=== PATIENT | female | born 1950 | race Two or more races ===

== ENCOUNTER 2019-06-17 14:13 | Emergency (ER) | payer MEDICAID ==
[~2019-06-17] VITALS: Ht 154.9 cm; Wt 86.2 kg
[~2019-06-17 14:13] MED LIST: ACET500T48 PO; ALBUAER3 IN; DOCU100C8 PO; DOXY-286 PO; FLUT110A INH; RANI75TA65 PO
[2019-06-17 14:49] LABS: Urine Bacteria FEW /hpf (None Seen); Urine Blood Negative /uL (Negative); Urine Specific Gravity 1.002 (1.001-1.035); Urine WBC 9 /hpf (0 - 5)
[2019-06-17 15:41] LABS: Basophils # (auto) 0.1 uL; Basophils % (auto) 1.2 % (0.0-2.0); Eosinophils # (auto) 0.4 uL; Eosinophils % (auto) 4.3 % (0.0-7.0); Hematocrit 46.6 % (36.0-46.0); Hemoglobin 15.8 g/dL (12.2-16.2); Lymphocytes # (auto) 4.4 uL; Lymphocytes % (auto) 48.6 % (10.0-50.0); Mean Corpuscular Hemoglobin 31.8 pg (28.0-32.0); Mean Corpuscular Hgb Conc. 33.9 g/dL (32.0-36.0); Mean Corpuscular Volume 93.6 fL (80.0-100.0); Monocytes # (auto) 0.8 uL; Monocytes % (auto) 9.4 % (0.0-12.0); Neutrophils # (auto) 3.3 uL; Neutrophils % (auto) 36.5 % (37.0-80.0); Nucleated Red Blood Cells % 0.1 %; Platelet Count (auto) 223 10^3/uL (140-450); Red Blood Cells 4.98 10^6/uL (4.0-5.20); Red Cell Distribution Width 13.6 % (11.8-14.3)
[2019-06-17 15:55] LABS: Albumin 3.7 g/dL (3.4-5.0); Anion Gap 6 (5-15); Blood Urea Nitrogen 11 mg/dL (7-18); Calcium 9.3 mg/dL (8.5-10.1); Carbon Dioxide 27 mmol/L (21-32); Chloride 108 mmol/L (98-107); Glucose 112 mg/dL (74-106); Potassium 4.3 mmol/L (3.5-5.1); Sodium 141 mmol/L (136-145)
[2019-06-17 16:00] LABS: Alanine Aminotransferase 65 U/L (13-56); Alkaline Phosphatase 103 U/L (45-117); Aspartate Aminotransferase 69 U/L (15-37); BUN/Creatinine Ratio 12.8; Bilirubin, Total 0.3 mg/dL (0.2-1.0); GFR African American 84 mL/min; GFR Non-African American 70 mL/min; Total Protein 7.7 g/dL (6.4-8.2)
[2019-06-17] MEDS ORDERED: SODIUM CHLORIDE 0.9% 1,000 ML IV ONE (16:14)
[2019-06-17] MEDS ORDERED: cefTRIAXone 1GM/50ML D5W 50 ML IV ONE (16:15)
[2019-06-17 16:39] VITALS: BP 125/58
[2019-06-17] MEDS ORDERED: DOCUSATE SOD 100 MG CAP PO ONE (17:00)
== END 2019-06-17 17:11 | disposition home or self-care (01) ==
LOC: ER 14:13
DX: N39.0 Urinary tract infection, site not specified (principal); K59.00 Constipation, unspecified; E86.0 Dehydration; J45.909 Unspecified asthma, uncomplicated; E78.5 Hyperlipidemia, unspecified; I10 Essential (primary) hypertension; Z90.710 Acquired absence of both cervix and uterus; Z88.0 Allergy status to penicillin; Z88.8 Allergy status to other drugs, medicaments and biological substances; Z79.899 Other long term (current) drug therapy
CPT/HCPCS: 36415; 74176; 80053; 81001; 84484; 85025; 96365; 99284; J0696; J7030

== ENCOUNTER 2020-11-14 13:31 | Emergency (ER) | payer OTHER, MEDICAID ==
[~2020-11-14] VITALS: Ht 152.4 cm; Wt 81.6 kg
[~2020-11-14 13:31] MED LIST changes: +DOCU100C10 PO; -DOCU100C8 PO
[2020-11-14 14:07] VITALS: BP 139/59
[2020-11-14] MEDS ORDERED: cefTRIAXone SOD 1,000 MG VL IM ONE (14:15)
[2020-11-14] MEDS ORDERED: ACETAMINOPHEN 325 MG TAB PO ONE (14:15)
== END 2020-11-14 15:06 | disposition home or self-care (01) ==
LOC: ER 13:31
DX: H65.192 Other acute nonsuppurative otitis media, left ear (principal); J03.90 Acute tonsillitis, unspecified; I10 Essential (primary) hypertension; E78.5 Hyperlipidemia, unspecified; J45.909 Unspecified asthma, uncomplicated; Z90.710 Acquired absence of both cervix and uterus; Z79.2 Long term (current) use of antibiotics; Z79.899 Other long term (current) drug therapy; Z88.0 Allergy status to penicillin; Z88.8 Allergy status to other drugs, medicaments and biological substances
CPT/HCPCS: 96372; 99283; J0696

== ENCOUNTER 2022-01-18 18:30 | Emergency (ER) | payer OTHER, MEDICAID ==
[~2022-01-18] VITALS: Ht 152.4 cm; Wt 80.3 kg
[2022-01-18 18:56] LABS: Basophils # (auto) 0.1 10 ^3/uL (0-0.2); Basophils % (auto) 0.9 % (0.0-2.0); Eosinophils # (auto) 0.3 10 ^3/uL (0-0.8); Eosinophils % (auto) 3.2 % (0.0-7.0); Hematocrit 44.5 % (36.0-46.0); Hemoglobin 14.4 g/dL (12.2-16.2); Lymphocytes # (auto) 3.3 10 ^3/uL (0.4-5.4); Lymphocytes % (auto) 39.2 % (10.0-50.0); Mean Corpuscular Hemoglobin 30.2 pg (28.0-32.0); Mean Corpuscular Hgb Conc. 32.4 g/dL (32.0-36.0); Mean Corpuscular Volume 93.2 fL (80.0-100.0); Monocytes # (auto) 0.5 10 ^3/uL (0-1.3); Neutrophils # (auto) 4.2 10 ^3/uL (1.6-8.6); Neutrophils % (auto) 50.7 % (37.0-80.0); Nucleated Red Blood Cells % 0.1 %; Red Blood Cells 4.78 10^6/uL (4.0-5.20); White Blood Cell 8.3 10^3/uL (4.4-10.8)
[2022-01-18] MEDS ORDERED: ASPirin 81 mg TAB PO ONE (19:00)
[2022-01-18 19:14] LABS: Albumin 3.4 g/dL (3.4-5.0); Calcium 8.6 mg/dL (8.5-10.1); Potassium 3.9 mmol/L (3.5-5.1)
[2022-01-18 19:17] LABS: BUN/Creatinine Ratio 9.4; Bilirubin, Total 0.2 mg/dL (0.2-1.0); Total Protein 7.2 g/dL (6.4-8.2)
[2022-01-18 21:10] VITALS: BP 120/59
== END 2022-01-18 21:13 | disposition home or self-care (01) ==
LOC: ER 18:31
DX: R07.89 Other chest pain (principal); G44.209 Tension-type headache, unspecified, not intractable; I10 Essential (primary) hypertension; E78.5 Hyperlipidemia, unspecified; J45.909 Unspecified asthma, uncomplicated; Z90.710 Acquired absence of both cervix and uterus; Z79.2 Long term (current) use of antibiotics; Z79.899 Other long term (current) drug therapy; Z88.0 Allergy status to penicillin; Z88.8 Allergy status to other drugs, medicaments and biological substances
CPT/HCPCS: 36415; 70450; 71045; 76705; 80053; 83735; 84484; 85025; 93005

== ENCOUNTER 2022-03-12 17:34 | Inpatient (IN) | payer OTHER, MEDICAID ==
[~2022-03-12] VITALS: Ht 162.6 cm; Wt 74.4 kg
[2022-03-12] MEDS ORDERED: SODIUM CHLORIDE 0.9% 1,000 ML IV ONE ×2 (18:30→23:45)
[2022-03-12] MEDS ORDERED: ONDANSETRON HCL 4 MG/2 ML VIAL IV ONE (19:00)
[2022-03-12 19:15] LABS: Basophils # (auto) 0 10 ^3/uL (0-0.2); Basophils % (auto) 0.5 % (0.0-2.0); Eosinophils # (auto) 0 10 ^3/uL (0-0.8); Eosinophils % (auto) 0.4 % (0.0-7.0); Hematocrit 48.1 % (36.0-46.0); Hemoglobin 16.3 g/dL (12.2-16.2); Lymphocytes # (auto) 1.2 10 ^3/uL (0.4-5.4); Lymphocytes % (auto) 17.8 % (10.0-50.0); Mean Corpuscular Hemoglobin 31.8 pg (28.0-32.0); Mean Corpuscular Hgb Conc. 33.9 g/dL (32.0-36.0); Monocytes # (auto) 0.8 10 ^3/uL (0-1.3); Monocytes % (auto) 12.1 % (0.0-12.0); Neutrophils # (auto) 4.7 10 ^3/uL (1.6-8.6); Neutrophils % (auto) 69.2 % (37.0-80.0); Red Blood Cells 5.12 10^6/uL (4.0-5.20); Red Cell Distribution Width 14.1 % (11.8-14.3); White Blood Cell 6.8 10^3/uL (4.4-10.8)
[2022-03-12 19:31] LABS: INR 1.03 (0.9-1.15); Partial Thromboplastin Time 30.8 sec (24.6-33.4)
[2022-03-12 19:32] LABS: Alanine Aminotransferase 56 U/L (13-56); Albumin 3.5 g/dL (3.4-5.0); Anion Gap 8 (5-15); Aspartate Aminotransferase 60 U/L (15-37); BUN/Creatinine Ratio 8.2; Blood Alcohol < 3.0 mg/dL (0-5); Blood Urea Nitrogen 5 mg/dL (7-18); Calcium 8.1 mg/dL (8.5-10.1); Carbon Dioxide 23 mmol/L (21-32); Chloride 108 mmol/L (98-107); GFR African American 124 mL/min; GFR Non-African American 103 mL/min; Glucose 110 mg/dL (74-106); Magnesium 2.3 mg/dL (1.6-2.6); Potassium 3.7 mmol/L (3.5-5.1); Sodium 139 mmol/L (136-145)
[2022-03-12 19:41] LABS: Alkaline Phosphatase 104 U/L (45-117); Bilirubin, Total 0.4 mg/dL (0.2-1.0); Total Protein 7.3 g/dL (6.4-8.2)
[2022-03-12] MEDS ORDERED: ACETAMINOPHEN 325 MG TAB PO ONE (19:45)
[2022-03-12 23:21] LABS: Urine Bacteria NONE SEEN /hpf (None Seen); Urine Blood 2+ /uL (Negative); Urine Specific Gravity 1.015 (1.001-1.035); Urine WBC 5 /hpf (0 - 5)
[2022-03-12 23:24] LABS: Alcohol, Urine < 3.0 mg/dL (0-10); Amphetamine Screen, Urine NEGATIVE (NEGATIVE); Barbiturate Scree,Urine NEGATIVE (NEGATIVE); Benzodiazephine Screen, Urine NEGATIVE (NEGATIVE); Cannabinoid Screen, Urine NEGATIVE (NEGATIVE); Cocaine Screen, Urine NEGATIVE (NEGATIVE); Opiate Scree,Urine NEGATIVE (NEGATIVE); Phencyclidine Screen, Urine NEGATIVE (NEGATIVE)
[2022-03-12] MEDS ORDERED: MORPHINE SULFATE INJ 2 MG/ml SYRG IV PRN (23:30)
[2022-03-12] MEDS ORDERED: NITROGLYCERIN 0.4 MG SL TAB SL PRN (23:30)
[2022-03-12] MEDS ORDERED: ONDANSETRON HCL 4 MG/2 ML VIAL IV PRN (23:30)
[2022-03-12] MEDS ORDERED: ACETAMINOPHEN 500 MG TAB PO PRN (23:30)
[2022-03-12 23:39] VITALS: BP 153/74
[2022-03-12] MEDS ORDERED: POM EACHEYE (23:47)
[2022-03-12] MEDS ORDERED: PRED1SUS4 OP (23:47)
[2022-03-13] MEDS ORDERED: hydrALAZINE HCL 20 MG/ML VL IV PRN
[2022-03-13 00:05] LABS: Magnesium 2.2 mg/dL (1.6-2.6)
[2022-03-13 00:19] LABS: Thyroid Stimulating Hormone 0.29 uIU/mL (0.358-3.74)
[2022-03-13 04:03] LABS: Basophils # (auto) 0 10 ^3/uL (0-0.2); Basophils % (auto) 0.5 % (0.0-2.0); Eosinophils # (auto) 0 10 ^3/uL (0-0.8); Eosinophils % (auto) 0.2 % (0.0-7.0); Hematocrit 45.6 % (36.0-46.0); Hemoglobin 15.5 g/dL (12.2-16.2); Lymphocytes # (auto) 2.6 10 ^3/uL (0.4-5.4); Lymphocytes % (auto) 39.3 % (10.0-50.0); Mean Corpuscular Hemoglobin 32.1 pg (28.0-32.0); Mean Corpuscular Hgb Conc. 33.9 g/dL (32.0-36.0); Mean Corpuscular Volume 94.6 fL (80.0-100.0); Monocytes # (auto) 0.9 10 ^3/uL (0-1.3); Neutrophils # (auto) 3.2 10 ^3/uL (1.6-8.6); Nucleated Red Blood Cells % 0.1 %; Red Blood Cells 4.83 10^6/uL (4.0-5.20); White Blood Cell 6.7 10^3/uL (4.4-10.8)
[2022-03-13 04:23] LABS: Albumin 3.1 g/dL (3.4-5.0); Anion Gap 8 (5-15); Calcium 8.3 mg/dL (8.5-10.1); Carbon Dioxide 22 mmol/L (21-32); Chloride 107 mmol/L (98-107); Glucose 98 mg/dL (74-106); Magnesium 2.3 mg/dL (1.6-2.6); Potassium 3.5 mmol/L (3.5-5.1); Sodium 137 mmol/L (136-145)
[2022-03-13 04:30] LABS: Alanine Aminotransferase 51 U/L (13-56); Alkaline Phosphatase 88 U/L (45-117); Aspartate Aminotransferase 56 U/L (15-37); BUN/Creatinine Ratio 8.5; Bilirubin, Total 0.3 mg/dL (0.2-1.0); Blood Urea Nitrogen 5 mg/dL (7-18); GFR African American 129 mL/min; GFR Non-African American 107 mL/min; Total Protein 7.1 g/dL (6.4-8.2)
[2022-03-13] MEDS: ALBUTEROL SULF HFA 90MCG INH 200DOSE IN PRN ×3 (09:12→21:43)
[2022-03-13] MEDS: AZITHROMYCIN 500MG/ 250ML 250 ML IV SCH (10:53)
[2022-03-13] MEDS: ASCORBIC ACID 1,000 MG TAB PO SCH (10:53)
[2022-03-13] MEDS: CHOLECALCIFEROL (VITD3) 2,000 UNIT CAP/TAB PO SCH (10:54)
[2022-03-13] MEDS: ENOXAPARIN SOD 40 MG/0.4 ML SYRINGE SC SCH ×2 (10:54→23:06)
[2022-03-13] MEDS: DexAMETHasone SOD PHOS 10MG/1ML VIAL INJ IV SCH (10:59)
[2022-03-13 16:18] LABS: CRP High Sensitivity 2.78 mg/dL (< 0.3)
[2022-03-13] MEDS ORDERED: OFLOXACIN 0.3% EACHEYE SCH (22:00)
[2022-03-13] MEDS ORDERED: PREDNISOLONE 1% OP SCH (22:00)
[2022-03-14] VITALS (7 sets, daily range): BP systolic 119–145; BP diastolic 59–76
[2022-03-14] MEDS: ALBUTEROL SULF HFA 90MCG INH 200DOSE IN PRN (07:14)
[2022-03-14] MEDS: AZITHROMYCIN 500MG/ 250ML 250 ML IV SCH (09:16)
[2022-03-14] MEDS: DexAMETHasone SOD PHOS 10MG/1ML VIAL INJ IV SCH (09:16)
[2022-03-14] MEDS: CHOLECALCIFEROL (VITD3) 2,000 UNIT CAP/TAB PO SCH (09:16)
[2022-03-14] MEDS: ASCORBIC ACID 1,000 MG TAB PO SCH (09:17)
[2022-03-14] MEDS: ENOXAPARIN SOD 40 MG/0.4 ML SYRINGE SC SCH ×2 (09:17→22:02)
[2022-03-14] MEDS: ZINC SULFATE 220mg CAP or TAB PO SCH (16:52)
[2022-03-15 05:00] VITALS: BP 120/62
[2022-03-15] MEDS: ALBUTEROL SULF HFA 90MCG INH 200DOSE IN PRN ×2 (06:49→20:07)
[2022-03-15 09:00] VITALS: BP 117/59
[2022-03-15] MEDS: ASCORBIC ACID 1,000 MG TAB PO SCH (11:16)
[2022-03-15] MEDS: CHOLECALCIFEROL (VITD3) 2,000 UNIT CAP/TAB PO SCH (11:16)
[2022-03-15] MEDS: ZINC SULFATE 220mg CAP or TAB PO SCH (11:16)
[2022-03-15] MEDS: ENOXAPARIN SOD 40 MG/0.4 ML SYRINGE SC SCH ×2 (11:16→22:07)
[2022-03-15] MEDS: AZITHROMYCIN 500MG/ 250ML 250 ML IV SCH (11:16)
[2022-03-15] MEDS: DexAMETHasone SOD PHOS 10MG/1ML VIAL INJ IV SCH (11:16)
[2022-03-15 13:00] VITALS: BP 130/90
[2022-03-15 16:47] VITALS: BP 117/56
[2022-03-15 20:42] VITALS: BP 117/56
[2022-03-15 22:00] VITALS: BP 131/59
[2022-03-16 05:00] VITALS: BP 130/60
[2022-03-16] MEDS: ALBUTEROL SULF HFA 90MCG INH 200DOSE IN PRN (06:51)
[2022-03-16 07:01] LABS: Basophils # (auto) 0 10 ^3/uL (0-0.2); Basophils % (auto) 0.5 % (0.0-2.0); Eosinophils # (auto) 0 10 ^3/uL (0-0.8); Eosinophils % (auto) 0.1 % (0.0-7.0); Hematocrit 44.7 % (36.0-46.0); Lymphocytes # (auto) 3.5 10 ^3/uL (0.4-5.4); Lymphocytes % (auto) 46.8 % (10.0-50.0); Mean Corpuscular Hemoglobin 31.8 pg (28.0-32.0); Mean Corpuscular Hgb Conc. 33.5 g/dL (32.0-36.0); Mean Corpuscular Volume 94.8 fL (80.0-100.0); Monocytes # (auto) 0.6 10 ^3/uL (0-1.3); Monocytes % (auto) 8.3 % (0.0-12.0); Neutrophils # (auto) 3.3 10 ^3/uL (1.6-8.6); Neutrophils % (auto) 44.3 % (37.0-80.0); Nucleated Red Blood Cells % 0.3 %; Red Blood Cells 4.71 10^6/uL (4.0-5.20); Red Cell Distribution Width 13.8 % (11.8-14.3); White Blood Cell 7.4 10^3/uL (4.4-10.8)
[2022-03-16 07:20] LABS: Albumin 2.9 g/dL (3.4-5.0); BUN/Creatinine Ratio 17.9; Bilirubin, Total 0.4 mg/dL (0.2-1.0); Calcium 8.5 mg/dL (8.5-10.1); Potassium 3.8 mmol/L (3.5-5.1); Total Protein 6.5 g/dL (6.4-8.2)
[2022-03-16 08:00] VITALS: BP 129/64
[2022-03-16 09:00] VITALS: BP 129/64
[2022-03-16] MEDS: ASCORBIC ACID 1,000 MG TAB PO SCH (09:26)
[2022-03-16] MEDS: AZITHROMYCIN 500MG/ 250ML 250 ML IV SCH (09:26)
[2022-03-16] MEDS: ENOXAPARIN SOD 40 MG/0.4 ML SYRINGE SC SCH (09:27)
[2022-03-16] MEDS: DexAMETHasone SOD PHOS 10MG/1ML VIAL INJ IV SCH (09:27)
[2022-03-16] MEDS: ZINC SULFATE 220mg CAP or TAB PO SCH (09:27)
[2022-03-16] MEDS: CHOLECALCIFEROL (VITD3) 2,000 UNIT CAP/TAB PO SCH (09:27)
[2022-03-16] MEDS ORDERED: AZIT250T PO (10:06)
[2022-03-16] MEDS ORDERED: METH4PAK PO (10:06)
[2022-03-16] MEDS ORDERED: POM EACHEYE (10:06)
== END 2022-03-16 14:44 | disposition home or self-care (01) | DRG 177 ==
LOC: ER 17:34 → EDBD 17:34 → EDUNIT# 17:34 → UNDOADMIN 23:28 → TELE 23:28 → TELE-EAST 03-13 23:56
PROVIDERS: ADMIT Registered Nurse; ATTEND Internal Medicine
DX: U07.1 COVID-19 (principal); J12.82 Pneumonia due to coronavirus disease 2019; J45.909 Unspecified asthma, uncomplicated; E78.5 Hyperlipidemia, unspecified; I10 Essential (primary) hypertension; Z90.710 Acquired absence of both cervix and uterus; Z83.3 Family history of diabetes mellitus; Z82.49 Family history of ischemic heart disease and other diseases of the circulatory system; Z82.3 Family history of stroke
CPT/HCPCS: 36415; 70450; 71045; 80053; 80307; 80320; 81001; 82306; 82728; 82962; 83036; 83605; 83615; 83735; 83880; 84443; 84484; 85025; 85379; 85610; 85730; 86141; 87040; 87426; 87804; 93005; 93971; 94640; 96361; 96374; G0378; J1100; J2405

== ENCOUNTER → 2023-09-08 | Outpatient (CLI) | payer OTHER, MEDICAID ==
[~2023-09-08] MED LIST changes: +AZIT-74 PO; +DOCU-265 PO; -DOCU100C10 PO; -DOXY-286 PO; +METH4PAK PO; +NITR-52 PO; +POM EACHEYE; +PRED1SUS4 OP
[2023-09-08 11:12] LABS: Urine Bacteria None Seen /hpf (None Seen)
[2023-09-08 11:27] LABS: Basophils # (auto) 0.1 10 ^3/uL (0-0.2); Eosinophils # (auto) 0.3 10 ^3/uL (0-0.8); Eosinophils % (auto) 4.1 % (0.0-7.0); Hematocrit 44.5 % (36.0-46.0); Lymphocytes % (auto) 47.9 % (10.0-50.0); Mean Corpuscular Hemoglobin 31.8 pg (28.0-32.0); Mean Corpuscular Hgb Conc. 33.6 g/dL (32.0-36.0); Mean Corpuscular Volume 94.7 fL (80.0-100.0); Monocytes # (auto) 0.6 10 ^3/uL (0-1.3); Monocytes % (auto) 9.4 % (0.0-12.0); Neutrophils # (auto) 2.4 10 ^3/uL (1.6-8.6); Neutrophils % (auto) 37.6 % (37.0-80.0); Nucleated Red Blood Cells % 0.1 %; Red Cell Distribution Width 13.2 % (11.8-14.3); White Blood Cell 6.3 10^3/uL (4.4-10.8)
[2023-09-08 12:04] LABS: Urine Blood Negative /uL (Negative); Urine Clarity Clear (Clear); Urine Color Yellow (Yellow); Urine Protein, UAD Negative (Negative); Urine Specific Gravity 1.014 (1.001-1.035); Urine Urobilinogen Normal (Negative); Urine WBC <1 /hpf (0 - 5); Urine pH 7.5 (5.0-9.0)
[2023-09-08 12:33] LABS: INR 1.08 (0.9-1.15); Prothrombin Time 11.4 sec (9.3-11.8)
[2023-09-08 12:36] LABS: Alanine Aminotransferase 26 U/L (7-40); Albumin 4.6 g/dL (3.2-4.8); Alkaline Phosphatase 109 U/L (46-116); Anion Gap 7 (5-15); Aspartate Aminotransferase 41 U/L (13-40); BUN/Creatinine Ratio 6.6 (10.0-20.0); Bilirubin, Total 0.6 mg/dL (0.2-1.0); Blood Urea Nitrogen 5 mg/dL (9-23); Carbon Dioxide 28 mmol/L (20-30); Chloride 106 mmol/L (98-107); Cholesterol 158 mg/dL (< 200); Glucose 96 mg/dL (74-106); HDL Cholesterol 50 mg/dL (40-59); LDL Cholesterol 97 mg/dL (< 100); Potassium 4.3 mmol/L (3.5-5.1); Sodium 141 mmol/L (136-145); Total Protein 7.6 g/dL (5.7-8.2); Triglycerides 86 mg/dL (< 150)
== END | disposition home or self-care (01) ==
LOC: LAB 10:59
PROVIDERS: ATTEND Internal Medicine Gastroenterology
DX: K74.60 Unspecified cirrhosis of liver (principal); R10.9 Unspecified abdominal pain; R93.3 Abnormal findings on diagnostic imaging of other parts of digestive tract; Z79.899 Other long term (current) drug therapy
CPT/HCPCS: 36415; 80053; 80061; 81001; 82728; 83036; 85025; 85610; 86038

== ENCOUNTER → 2023-12-21 | Outpatient (CLI) | payer MEDICARE, MEDICAID ==
[2023-12-21 10:12] LABS: Urine Bacteria None Seen /hpf (None Seen)
[2023-12-21 10:49] LABS: Basophils # (auto) 0 10 ^3/uL (0-0.2); Basophils % (auto) 0.6 % (0.0-2.0); Eosinophils # (auto) 0.3 10 ^3/uL (0-0.8); Eosinophils % (auto) 3.7 % (0.0-7.0); Hematocrit 42.8 % (36.0-46.0); Hemoglobin 14.6 g/dL (12.2-16.2); Lymphocytes # (auto) 4.1 10 ^3/uL (0.4-5.4); Lymphocytes % (auto) 52.9 % (10.0-50.0); Mean Corpuscular Hemoglobin 31.2 pg (28.0-32.0); Mean Corpuscular Volume 91.9 fL (80.0-100.0); Monocytes # (auto) 0.6 10 ^3/uL (0-1.3); Monocytes % (auto) 8.2 % (0.0-12.0); Neutrophils # (auto) 2.7 10 ^3/uL (1.6-8.6); Neutrophils % (auto) 34.6 % (37.0-80.0); Nucleated Red Blood Cells % 0.3 %; Red Blood Cells 4.66 10^6/uL (4.0-5.20); Red Cell Distribution Width 13.8 % (11.8-14.3); White Blood Cell 7.8 10^3/uL (4.4-10.8)
[2023-12-21 11:00] LABS: Urine Blood Normal /uL (Negative); Urine Clarity TURBID (Clear); Urine Color Straw (Yellow); Urine Protein, UAD Normal (Negative); Urine Specific Gravity 1.016 (1.001-1.035); Urine Urobilinogen Normal (Negative); Urine WBC 5/HPF /hpf (0 - 5)
[2023-12-21 11:01] LABS: Urine Mucus FEW (None Seen)
[2023-12-21 11:27] LABS: Alanine Aminotransferase 23 U/L (7-40); Alkaline Phosphatase 126 U/L (46-116); Anion Gap 4 (5-15); BUN/Creatinine Ratio 9.9 (10.0-20.0); Blood Urea Nitrogen 7 mg/dL (9-23); Calcium 9.5 mg/dL (8.7-10.4); Carbon Dioxide 30 mmol/L (20-30); Chloride 108 mmol/L (98-107); Glucose 89 mg/dL (74-106); LDL Cholesterol 125 mg/dL (< 100); Potassium 4.2 mmol/L (3.5-5.1); Sodium 142 mmol/L (136-145); Triglycerides 97 mg/dL (< 150)
[2023-12-21 11:28] LABS: Albumin 4.2 g/dL (3.2-4.8); Aspartate Aminotransferase 27 U/L (13-40); Bilirubin, Total 0.6 mg/dL (0.2-1.0); Cholesterol 180 mg/dL (< 200); HDL Cholesterol 44 mg/dL (40-59); Total Protein 6.8 g/dL (5.7-8.2)
== END | disposition home or self-care (01) ==
LOC: LAB 09:55
PROVIDERS: ATTEND Student in an Organized Health Care Education/Training Program
DX: I10 Essential (primary) hypertension (principal); E78.5 Hyperlipidemia, unspecified; E55.9 Vitamin D deficiency, unspecified; N20.0 Calculus of kidney; N39.0 Urinary tract infection, site not specified; Z79.899 Other long term (current) drug therapy
CPT/HCPCS: 36415; 80053; 80061; 81001; 82306; 83036; 84443; 85025

== ENCOUNTER 2024-01-28 08:05 | Day surgery (SDC) | payer OTHER, MEDICAID ==
[2024-01-26 11:24] LABS: Urine Bacteria None Seen /hpf (None Seen)
[2024-01-26 11:34] LABS: Basophils # (auto) 0.1 10 ^3/uL (0-0.2); Basophils % (auto) 0.6 % (0.0-2.0); Eosinophils # (auto) 0.3 10 ^3/uL (0-0.8); Eosinophils % (auto) 2.8 % (0.0-7.0); Hematocrit 43.9 % (36.0-46.0); Lymphocytes # (auto) 3.2 10 ^3/uL (0.4-5.4); Lymphocytes % (auto) 36.1 % (10.0-50.0); Mean Corpuscular Hemoglobin 31.8 pg (28.0-32.0); Mean Corpuscular Hgb Conc. 34.2 g/dL (32.0-36.0); Mean Corpuscular Volume 93.1 fL (80.0-100.0); Monocytes # (auto) 0.8 10 ^3/uL (0-1.3); Monocytes % (auto) 8.5 % (0.0-12.0); Neutrophils # (auto) 4.7 10 ^3/uL (1.6-8.6); Platelet Count (auto) 217 10^3/uL (140-450); Red Blood Cells 4.71 10^6/uL (4.0-5.20); Red Cell Distribution Width 13.8 % (11.8-14.3)
[2024-01-26 11:36] LABS: Urine Blood TRACE /uL (Negative); Urine Clarity Clear (Clear); Urine Color Light-Yellow (Yellow); Urine Protein, UAD Negative (Negative); Urine Specific Gravity 1.013 (1.001-1.035); Urine Urobilinogen Normal (Negative); Urine WBC 1 /hpf (0 - 5); Urine pH 6.5 (5.0-9.0)
[2024-01-26 11:47] LABS: INR 1.06 (0.9-1.15); Partial Thromboplastin Time 28.8 SEC (24.5-34.5); Prothrombin Time 11.2 sec (9.3-11.8)
[2024-01-26 11:58] LABS: Alanine Aminotransferase 28 U/L (7-40); Alkaline Phosphatase 135 U/L (46-116); Anion Gap 6 (5-15); Calcium 10.1 mg/dL (8.7-10.4); Carbon Dioxide 27 mmol/L (20-30); Chloride 106 mmol/L (98-107); Potassium 4.4 mmol/L (3.5-5.1); Sodium 139 mmol/L (136-145)
[2024-01-26 12:01] LABS: Glucose 91 mg/dL (74-106)
[2024-01-26 12:02] LABS: BUN/Creatinine Ratio 12.2 (10.0-20.0); Blood Urea Nitrogen 9 mg/dL (9-23)
[2024-01-26 12:03] LABS: Albumin 4.5 g/dL (3.2-4.8)
[2024-01-26 12:04] LABS: Aspartate Aminotransferase 31 U/L (13-40); Bilirubin, Total 0.5 mg/dL (0.2-1.0); Total Protein 7.6 g/dL (5.7-8.2)
[~2024-01-28] VITALS: Ht 154.9 cm; Wt 72.6 kg
[~2024-01-28 08:05] MED LIST changes: -ACET500T48 PO; -ALBUAER3 IN; +ASPI1TAB20 PO; +ATOR10TA PO; -AZIT-74 PO; -DOCU-265 PO; -METH4PAK PO; -NITR-52 PO; -POM EACHEYE; -PRED1SUS4 OP; -RANI75TA65 PO
[2024-01-28] MEDS ORDERED: fentaNYL CITRATE 100 MCG/2 ML VL ONE (09:26)
[2024-01-28] MEDS ORDERED: MIDAZOLAM HCL 2MG/2ML 2ml VIAL (1mg/ml) ONE (09:26)
[2024-01-28] MEDS ORDERED: KETAMINE 50mg/ML 1ml syringe ONE (09:26)
[2024-01-28] MEDS ORDERED: ONDANSETRON HCL 4 MG/2 ML VIAL ONE (09:34)
[2024-01-28] MEDS ORDERED: LIDOCAINE 2% (LOCAL ANESTH.) PF 5ml SDV ONE (09:34)
[2024-01-28 10:12] VITALS: TEMP 98.1; O2SAT 97
[2024-01-28] MEDS ORDERED: ONDANSETRON HCL 4 MG/2 ML VIAL IV ONE (10:30)
[2024-01-28] MEDS ORDERED: PROPOFOL 10 MG/ML 20 ML IV ONE (10:35)
[2024-01-28 10:42] VITALS: BP 114/53; PULSE 70; RESP 14; O2SAT 94
== END 2024-01-28 10:56 | disposition home or self-care (01) ==
LOC: GI 08:05
PROVIDERS: ATTEND Internal Medicine Gastroenterology
DX: K59.09 Other constipation (principal); K29.50 Unspecified chronic gastritis without bleeding; D12.4 Benign neoplasm of descending colon; D12.3 Benign neoplasm of transverse colon; K57.30 Diverticulosis of large intestine without perforation or abscess without bleeding; K63.89 Other specified diseases of intestine; K63.5 Polyp of colon; K64.8 Other hemorrhoids; K44.9 Diaphragmatic hernia without obstruction or gangrene; K20.90 Esophagitis, unspecified without bleeding; M19.90 Unspecified osteoarthritis, unspecified site; I10 Essential (primary) hypertension; Z88.0 Allergy status to penicillin; Z88.6 Allergy status to analgesic agent; Z91.041 Radiographic dye allergy status; J45.909 Unspecified asthma, uncomplicated; Z90.710 Acquired absence of both cervix and uterus; Z98.890 Other specified postprocedural states; Z83.3 Family history of diabetes mellitus; Z82.49 Family history of ischemic heart disease and other diseases of the circulatory system; Z80.8 Family history of malignant neoplasm of other organs or systems; Z79.82 Long term (current) use of aspirin; Z79.899 Other long term (current) drug therapy
CPT/HCPCS: 36415; 43239; 45380; 80053; 81001; 85025; 85610; 85730; 88305; 88312; 88342; J2001; J2250; J2405; J2704; J3010; J7030

== ENCOUNTER 2024-02-06 13:21 | Inpatient (IN) | payer OTHER, MEDICAID ==
[~2024-02-06] VITALS: Ht 152.4 cm; Wt 78.0 kg
[2024-02-06 14:21] LABS: Urine Bacteria None Seen /hpf (None Seen)
[2024-02-06 14:43] LABS: Urine Blood 1+ /uL (Negative); Urine Clarity Clear (Clear); Urine Color Light-Yellow (Yellow); Urine Protein, UAD Negative (Negative); Urine Specific Gravity 1.006 (1.001-1.035); Urine Urobilinogen Normal (Negative); Urine WBC 4 /hpf (0 - 5); Urine pH 7.5 (5.0-9.0)
[2024-02-06] MEDS: SODIUM CHLORIDE 0.9% 500 ML IVB ONE (15:01)
[2024-02-06] MEDS: ONDANSETRON HCL 4 MG/2 ML VIAL IV ONE ×2 (15:06→15:07)
[2024-02-06] MEDS: MORPHINE SULFATE 4 MG/ML SYR/VIAL IV ONE ×2 (15:07→16:27)
[2024-02-06 15:31] LABS: Basophils # (auto) 0.1 10 ^3/uL (0-0.2); Basophils % (auto) 0.7 % (0.0-2.0); Eosinophils # (auto) 0.2 10 ^3/uL (0-0.8); Eosinophils % (auto) 2.8 % (0.0-7.0); Hematocrit 43.5 % (36.0-46.0); Hemoglobin 14.8 g/dL (12.2-16.2); Lymphocytes # (auto) 4.1 10 ^3/uL (0.4-5.4); Lymphocytes % (auto) 51.3 % (10.0-50.0); Mean Corpuscular Hemoglobin 31.4 pg (28.0-32.0); Mean Corpuscular Volume 92.5 fL (80.0-100.0); Monocytes # (auto) 0.6 10 ^3/uL (0-1.3); Monocytes % (auto) 7.3 % (0.0-12.0); Neutrophils % (auto) 37.9 % (37.0-80.0); Platelet Count (auto) 187 10^3/uL (140-450)
[2024-02-06 15:50] LABS: Alanine Aminotransferase 22 U/L (7-40); Albumin 4.1 g/dL (3.2-4.8); Alkaline Phosphatase 115 U/L (46-116); Anion Gap 6 (5-15); Aspartate Aminotransferase 31 U/L (13-40); BUN/Creatinine Ratio 7.5 (10.0-20.0); Blood Urea Nitrogen 6 mg/dL (9-23); Calcium 9.7 mg/dL (8.7-10.4); Carbon Dioxide 24 mmol/L (20-31); Chloride 112 mmol/L (98-107); Glucose 95 mg/dL (74-106); Lipase 30 U/L (12-53); Potassium 4.2 mmol/L (3.5-5.1); Sodium 142 mmol/L (136-145)
[2024-02-06 15:51] LABS: Bilirubin, Total 0.8 mg/dL (0.2-1.0)
[2024-02-06] MEDS: LACTATED RINGER'S 1,000 ML IV ONE (23:00)
[2024-02-07] VITALS (8 sets, daily range): BP systolic 106–146; BP diastolic 45–96; PULSE 67–77; RESP 14–19; TEMP 97.8–98.5; O2SAT 94–99
[2024-02-07] MEDS ORDERED: MORPHINE SULFATE INJ 2 MG/ml SYRG IV ONE
[2024-02-07] MEDS ORDERED: ALBUTEROL SULF 2.5 MG/0.5ML(0.5%) NEB SOLN NEB PRN (02:15)
[2024-02-07] MEDS ORDERED: hydrALAZINE HCL 20 MG/ML VL IV PRN (02:15)
[2024-02-07] MEDS ORDERED: IPRATROPIUM BROM 0.5 MG/2.5ML INH SOL NEB PRN (02:15)
[2024-02-07 07:55] LABS: Anion Gap 8 (5-15); Carbon Dioxide 24 mmol/L (20-31); Chloride 109 mmol/L (98-107); Potassium 3.7 mmol/L (3.5-5.1); Sodium 141 mmol/L (136-145)
[2024-02-07 07:56] LABS: Calcium 9.4 mg/dL (8.7-10.4)
[2024-02-07 08:01] LABS: BUN/Creatinine Ratio 10.1 (10.0-20.0); Blood Urea Nitrogen 7 mg/dL (9-23); Glucose 81 mg/dL (74-106)
[2024-02-07] MEDS ORDERED: ONDANSETRON HCL 4 MG/2 ML VIAL IV PRN (08:30)
[2024-02-07] MEDS ORDERED: MORPHINE SULFATE INJ 2 MG/ml SYRG IV PRN (08:30)
[2024-02-07] MEDS ORDERED: ACETAMINOPHEN 325 MG TAB PO PRN (08:30)
[2024-02-07] MEDS: FLUTICASONE PROPIONATE IN SCH (10:00)
[2024-02-07] MEDS: metroNIDAZOLE 500 MG TAB PO SCH (11:04)
[2024-02-07] MEDS: PANTOPRAZOLE 40 MG/10 ML VIAL INJ IV SCH (11:04)
[2024-02-07] MEDS: ASPirin-EC 81 mg tab PO SCH (11:04)
[2024-02-07] MEDS ORDERED: ZOFR4T PO (12:19)
[2024-02-07] MEDS ORDERED: DICY10CA PO (12:19)
[2024-02-07] MEDS ORDERED: HYDR-4902 PO (12:19)
[2024-02-07] MEDS: DICYCLOMINE HCL 10 MG CAP PO ONE (13:24)
[2024-02-07] MEDS ORDERED: HYDR2.5C39 TOP (16:58)
[2024-02-07] MEDS ORDERED: DOCU-94 PO (16:58)
[2024-02-07] MEDS ORDERED: DOCUSATE SOD 100 MG CAP PO SCH (22:00)
[2024-02-07] MEDS ORDERED: HYDROCORTISONE ACET 25 MG RECTAL SUPP PR SCH (22:00)
[2024-02-07] MEDS ORDERED: ATORVASTATIN 20 MG TAB PO SCH (22:00)
== END 2024-02-07 17:50 | disposition home or self-care (01) | DRG 392 ==
LOC: ER 13:21 → OVERFLOW 23:02 → CENTRAL 23:02
PROVIDERS: ADMIT Internal Medicine; ATTEND Internal Medicine
DX: A09 Infectious gastroenteritis and colitis, unspecified (principal); N39.0 Urinary tract infection, site not specified; E87.20 Acidosis, unspecified; K22.10 Ulcer of esophagus without bleeding; I10 Essential (primary) hypertension; K57.30 Diverticulosis of large intestine without perforation or abscess without bleeding; J45.909 Unspecified asthma, uncomplicated; K59.00 Constipation, unspecified; E78.5 Hyperlipidemia, unspecified; K64.8 Other hemorrhoids; M54.9 Dorsalgia, unspecified; Z90.710 Acquired absence of both cervix and uterus; Z79.899 Other long term (current) drug therapy
CPT/HCPCS: 36415; 74176; 80048; 80053; 81001; 83690; 84484; 85025; 96374; 96375; G0378; J2405; J2470

== ENCOUNTER 2024-03-06 13:39 | Emergency (ER) | payer OTHER, MEDICAID ==
[~2024-03-06] VITALS: Ht 152.4 cm; Wt 75.0 kg
[~2024-03-06 13:39] MED LIST changes: +DICY10CA PO; +DOCU-94 PO; +HYDR-4902 PO; +HYDR2.5C39 TOP; +ZOFR4T PO
[2024-03-06 14:39] LABS: Urine Bacteria None Seen /hpf (None Seen)
[2024-03-06 14:46] LABS: Urine Blood Negative /uL (Negative); Urine Clarity Clear (Clear); Urine Color Light-Yellow (Yellow); Urine Protein, UAD Negative (Negative); Urine Urobilinogen Normal (Negative); Urine WBC 4 /hpf (0 - 5)
[2024-03-06] MEDS: ALBUTEROL SULF 2.5 MG/0.5ML(0.5%) NEB SOLN NEB ONE (15:39)
[2024-03-06] MEDS: IPRATROPIUM BROM 0.5 MG/2.5ML INH SOL NEB ONE (15:39)
[2024-03-06 15:50] VITALS: BP 123/63; PULSE 71; RESP 20; TEMP 98.5; O2SAT 96
[2024-03-06] MEDS: DexAMETHasone SOD PHOS 10MG/1ML VIAL INJ IM ONE (15:56)
[2024-03-06 16:54] LABS: Alanine Aminotransferase 32 U/L (7-40); Alkaline Phosphatase 133 U/L (46-116); Anion Gap 8 (5-15); Aspartate Aminotransferase 42 U/L (13-40); BUN/Creatinine Ratio 11.8 (10.0-20.0); Blood Urea Nitrogen 8 mg/dL (9-23); Calcium 9.7 mg/dL (8.7-10.4); Carbon Dioxide 24 mmol/L (20-31); Chloride 108 mmol/L (98-107); Glucose 92 mg/dL (74-106); Sodium 140 mmol/L (136-145)
[2024-03-06 16:55] LABS: Albumin 4.2 g/dL (3.2-4.8); Bilirubin, Total 0.4 mg/dL (0.2-1.0); Total Protein 7.2 g/dL (5.7-8.2)
[2024-03-06] MEDS ORDERED: PRED20TA2 PO (17:05)
[2024-03-06] MEDS ORDERED: RESPMIS2 XX (17:05)
[2024-03-06] MEDS ORDERED: IPRA0.00 IN (17:05)
== END 2024-03-06 17:35 | disposition home or self-care (01) ==
LOC: ER 13:39
DX: J45.901 Unspecified asthma with (acute) exacerbation (principal); E78.5 Hyperlipidemia, unspecified; I10 Essential (primary) hypertension; M19.90 Unspecified osteoarthritis, unspecified site; R42 Dizziness and giddiness; M54.2 Cervicalgia; Z90.710 Acquired absence of both cervix and uterus
CPT/HCPCS: 36415; 71045; 80053; 81001; 84484; 93005; 94640; 96372; 99285; J1100

== ENCOUNTER → 2024-06-14 | Outpatient (CLI) | payer OTHER, MEDICAID ==
[~2024-06-14] MED LIST changes: +IPRA0.00 IN; +PRED20TA2 PO; +RESPMIS2 XX
[2024-06-14 11:27] LABS: Urine Bacteria None Seen /hpf (None Seen)
[2024-06-14 12:18] LABS: Basophils # (auto) 0 10 ^3/uL (0-0.2); Basophils % (auto) 0.5 % (0.0-2.0); Eosinophils # (auto) 0.2 10 ^3/uL (0-0.8); Eosinophils % (auto) 3.5 % (0.0-7.0); Hematocrit 44.9 % (36.0-46.0); Hemoglobin 15.1 g/dL (12.2-16.2); Lymphocytes # (auto) 3.5 10 ^3/uL (0.4-5.4); Lymphocytes % (auto) 51.3 % (10.0-50.0); Mean Corpuscular Hemoglobin 30.8 pg (28.0-32.0); Mean Corpuscular Hgb Conc. 33.7 g/dL (32.0-36.0); Mean Corpuscular Volume 91.5 fL (80.0-100.0); Monocytes # (auto) 0.4 10 ^3/uL (0-1.3); Monocytes % (auto) 6.6 % (0.0-12.0); Neutrophils # (auto) 2.6 10 ^3/uL (1.6-8.6); Neutrophils % (auto) 38.1 % (37.0-80.0); Nucleated Red Blood Cells % 0.1 %; Platelet Count (auto) 197 10^3/uL (140-450); White Blood Cell 6.8 10^3/uL (4.4-10.8)
[2024-06-14 12:23] LABS: Urine Blood Negative /uL (Negative); Urine Clarity Clear (Clear); Urine Color Light-Yellow (Yellow); Urine Protein, UAD Negative (Negative); Urine Specific Gravity 1.014 (1.001-1.035); Urine Squamous Epithelial Cell FEW /hpf (<5); Urine Urobilinogen Normal (Negative); Urine WBC 1 /HPF (0-5); Urine pH 7.5 (5.0-9.0)
[2024-06-14 12:58] LABS: Alanine Aminotransferase 26 U/L (7-40); Albumin 4.3 g/dL (3.2-4.8); Anion Gap 8 (5-15); Aspartate Aminotransferase 33 U/L (13-40); BUN/Creatinine Ratio 10.5 (10.0-20.0); Bilirubin, Total 0.5 mg/dL (0.2-1.0); Calcium 9.9 mg/dL (8.7-10.4); Carbon Dioxide 25 mmol/L (20-31); Cholesterol 174 mg/dL (< 200); Glucose 89 mg/dL (74-106); HDL Cholesterol 48 mg/dL (40-59); Potassium 4.1 mmol/L (3.5-5.1); Sodium 140 mmol/L (136-145); Triglycerides 83 mg/dL (< 150)
[2024-06-14 12:59] LABS: Total Protein 6.9 g/dL (5.7-8.2)
[2024-06-14 13:01] LABS: Alkaline Phosphatase 131 U/L (46-116); Blood Urea Nitrogen 8 mg/dL (9-23); Chloride 107 mmol/L (98-107); LDL Cholesterol 123 mg/dL (< 100)
== END | disposition home or self-care (01) ==
LOC: LAB 11:06
PROVIDERS: ATTEND Nurse Practitioner Family
DX: I10 Essential (primary) hypertension (principal); K76.0 Fatty (change of) liver, not elsewhere classified; E55.9 Vitamin D deficiency, unspecified; E78.5 Hyperlipidemia, unspecified; Z79.899 Other long term (current) drug therapy
CPT/HCPCS: 36415; 80053; 80061; 81001; 82306; 83036; 84443; 85025

== ENCOUNTER 2024-09-05 18:48 | Emergency (ER) | payer OTHER, MEDICAID ==
[~2024-09-05] VITALS: Ht 152.4 cm; Wt 77.2 kg
[2024-09-05 18:50] VITALS: BP 127/57; RESP 18; TEMP 97.6; O2SAT 98
[2024-09-05 18:54] VITALS: PULSE 69
[2024-09-05 19:20] LABS: Basophils # (auto) 0 10 ^3/uL (0-0.2); Basophils % (auto) 0.5 % (0.0-2.0); Eosinophils # (auto) 0.3 10 ^3/uL (0-0.8); Eosinophils % (auto) 2.7 % (0.0-7.0); Hematocrit 44.3 % (36.0-46.0); Hemoglobin 14.7 g/dL (12.2-16.2); Lymphocytes # (auto) 3.5 10 ^3/uL (0.4-5.4); Mean Corpuscular Hemoglobin 30.1 pg (28.0-32.0); Mean Corpuscular Hgb Conc. 33.2 g/dL (32.0-36.0); Mean Corpuscular Volume 90.9 fL (80.0-100.0); Monocytes # (auto) 0.9 10 ^3/uL (0-1.3); Monocytes % (auto) 9.5 % (0.0-12.0); Neutrophils % (auto) 51.3 % (37.0-80.0); Nucleated Red Blood Cells % 0.1 %; Platelet Count (auto) 187 10^3/uL (140-450); Red Blood Cells 4.87 10^6/uL (4.0-5.20); Red Cell Distribution Width 14.3 % (11.8-14.3); Urine Bacteria None Seen /hpf (None Seen); White Blood Cell 9.6 10^3/uL (4.4-10.8)
[2024-09-05 19:34] LABS: Urine Blood TRACE /uL (Negative); Urine Clarity Clear (Clear); Urine Color Colorless (Yellow); Urine Protein, UAD Negative (Negative); Urine Specific Gravity 1.005 (1.001-1.035); Urine Squamous Epithelial Cell FEW /hpf (<5); Urine Urobilinogen Normal (Negative); Urine WBC < 1 /HPF (0-5); Urine pH 6.5 (5.0-9.0)
--- NOTE | 2024-09-05 19:40 | DVH ---
CHEST RADIOGRAPH Indication: cp Technique: Single frontal view of the chest was obtained Comparison: XY CHEST XRAY 1 VIEW on DOS: 03/06/24, CXRP on DOS: 03/16/22, CHEST PORTABLE on DOS: FINDINGS: Lines and Tubes: None Lungs: No focal consolidation. Pleura: No effusion. No pneumothorax. Cardiomediastinal contours: Unremarkable Bones: No acute osseous abnormality. IMPRESSION: 1. No acute cardiopulmonary disease.
[2024-09-05 19:42] LABS: Alanine Aminotransferase 29 U/L (7-40); Albumin 4.2 g/dL (3.2-4.8); Anion Gap 10 (5-15); Aspartate Aminotransferase 30 U/L (13-40); BUN/Creatinine Ratio 13.8 (10.0-20.0); Calcium 9.7 mg/dL (8.7-10.4); Carbon Dioxide 23 mmol/L (20-31); Chloride 106 mmol/L (98-107); Glucose 96 mg/dL (74-106); Potassium 4.4 mmol/L (3.5-5.1); Sodium 139 mmol/L (136-145); Total Protein 6.6 g/dL (5.7-8.2)
[2024-09-05 19:43] LABS: Alkaline Phosphatase 145 U/L (46-116); Bilirubin, Total 0.8 mg/dL (0.2-1.0); Blood Urea Nitrogen 9 mg/dL (9-23)
--- NOTE | 2024-09-05 20:08 | ED.PDOC ---
HPI Comments 73 year old female, with PMHx of arthritis, asthma, HLD, and HTN presents to the ED for CC of chest pain. Patient states, that she has been experiencing substernal chest pain that radiates to her mid epigastric region onset, yesterday (09/04/24). Patient relays, symptoms resulted due to increased nausea and vomiting. Patient endorses, associated symptoms of dizziness. Patient denies headache, fatigue, weakness, or palpitations. No other symptoms or modifying factors present at this time. Chief Complaint: Chest Pain Time Seen by MD: 19:30 Primary Care Provider: TAMMY Reviewed Notes: Nurses Notes, Medications, Allergies Allergies: Coded Allergies: Hydrocodone (Unverified Allergy, Unknown, 03/06/16) Iodine (Verified Allergy, Unknown, 06/07/14) Penicillins (Verified Allergy, Unknown, 06/07/14) Uncoded Allergies: CONTRAST (Allergy, Unknown, 06/17/19) Home Meds Active Scripts Respiratory Therapy Supplies (Full Kit Nebulizer Set) Set Mis, UNIT XX, #1 Prov:BETZAIDA LIVINGSTON MD 03/06/24 Ipratropium-Albuterol (Ipratropium [place]/Albut) 1 Christal Christal, 1 CHRISTAL IN Q4HPRN PRN for 5 Days, #30 ML Prov:BETZAIDA LIVINGSTON MD 03/06/24 Prednisone (Prednisone) 20 Mg Tab, 20 MG PO DAILY for 4 Days, #4 MG Start on 03/07/2024 Prov:BETZAIDA LIVINGSTON MD 03/06/24 Hydrocortisone Base (Anusol-Hc) 2.5 % Cre, 1 APPLIC TOP BID, #30 GRAMS 2 Refills Prov:NADEEM DHILLON MD 02/07/24 Docusate Sodium (Colace) 100 Mg Cap, 1 CAP PO BID, #60 CAP Prov:NADEEM DHILLON MD 02/07/24 Hydrocodone-Acetaminophen (Hydrocodone Bitartrate/AC 5-325 mg) 1 Tab Tab, 1 TAB PO Q6HPRN PRN, #10 TAB Prov:NADEEM DHILLON MD 02/07/24 Ondansetron Odt 4MG Tab (ZOFRAN PO) 4 Mg Tb, 4 MG PO Q4HPRN PRN, #30 TAB ODT TAB-DISSOLVE IN MOUTH, THEN SWALLOW Prov:NADEEM DHILLON MD 02/07/24 Dicyclomine Hcl (BENTYL CAPSULE) 10 Mg Cp, 1 CAP PO TID, #90 CAP 3 Refills Prov:NADEEM DHILLON MD 02/07/24 Reported Medications Atorvastatin Calcium (Lipitor) Unknown Strength Tab, PO DAILY, TAB 01/26/24 Aspirin (Aspir-81) 81 Mg Tab, 81 MG PO DAILY, TAB 01/26/24 Fluticasone Propionate (FLOVENT HFA 110Mcg INH) 110 Mcg Ih, 110 MCG INH Q12HR for 30 Days, MCG 10/01/18 Information Source: Patient Mode of Arrival: Ambulatory Severity: Moderate Timing: Days Duration: Since onset Prehospital treatment: None Location: Substernal Radiation: Abdomen Onset: At Rest Cardiac Risk Factors: Hyperlipidemia, HTN PE Risk Factors: None History of: None Modifying Factors: Nothing Associated Signs and Symptoms: Abdominal Pain, N/V Past Medical History PAST MEDICAL HISTORY: Arthritis, Asthma, High Lipids, HTN Surgical History: Hysterectomy WEB CONTENT DIRECTOR History: No Pertinent WEB CONTENT DIRECTOR History Family History Family History: Reviewed,noncontributory to illness Social History Smoker: Non-Smoker Alcohol: Denies ETOH Use Drugs: Denies Drug Use Lives In: Home Constitutional: denies: chills, diaphoresis, fatigue, fever, malaise, sweats, weakness, others EENTM: denies: blurred vision, double vision, ear bleeding, ear discharge, ear drainage, ear pain, ear ringing, eye pain, eye redness, hearing loss, mouth pain, mouth swelling, nasal discharge, nose bleeding, nose congestion, nose pain, photophobia, tearing, throat pain, throat swelling, voice changes, others Respiratory: denies: cough, hemoptysis, orthopnea, SOB at rest, shortness of breath, SOB with excertion, stridor, wheezing, others Cardiovascular: reports: chest pain; denies: dizzy spells, diaphoresis, Dyspnea on exertion, edema, irregular heart beat, left arm pain, lightheadedness, palpitations, PND, syncope, others Gastrointestinal: reports: abdominal pain, nausea, vomiting; denies: abdomen distended, blood streaked bowels, constipated, diarrhea, dysphagia, difficulty swallowing, hematemesis, melena, poor appetite, poor fluid intake, rectal b leeding, rectal pain, others Genitourinary: denies: abnormal vagina bleeding, burning, dyspareunia, dysuria, flank pain, frequency, hematuria, incontinence, pain, , vagina discharge, urgency, others Neurological: reports: dizziness; denies: fainting, headache, left sided numbness, left sided weakness, numbness, paresthesia, pre-existing deficit, right sided numbness, right sided weakness, seizure, speech problems, tingling, tremors, weakness, others Musculoskeletal: denies: back pain, gout, joint pain, joint swelling, muscle pain, muscle stiffness, neck pain, others Integumetry: denies: bruises, change in color, change in hair/nails, dryness, laceration, lesions, lumps, rash, wounds, others Allergic/Immunocompromised: denies: Difficulty Healing, Frequent Infections, Hives, Itching, others Hematologic/Lymphatic: denies: anemia, blood clots, easy bleeding, easy bruising, swollen glands, others Endocrine: denies: excessive hunger, excessive sweating, excessive thirst, excessive urination, flushing, intolerance to cold, intolerance to heat, unexplained weight gain, unexplained weight loss, others Psychiatric: denies: anxiety, bipolar disorder, depression, hopeless, panic disorder, schizophrenia, sleepless, suicidal, others All Other Systems: Reviewed and Negative Physical Exam General Appearance: No Apparent Distress, Normal HEENT: Normal ENT Inspection, Pharynx Normal Neck: Full Range of Motion, Non-Tender, Normal, Normal Inspection Respiratory: Chest Non-Tender, Lungs Clear, No Accessory Muscle Use, No Respiratory Distress, Normal Breath Sounds Cardiovascular: No Edema, No Murmur, No Gallop, Normal Peripheral Pulses, Regular Rate/Rhythm Breast Exam: Deferred Gastrointestinal: No Organomegaly, Non Tender, No Pulsatile Mass, Normal Bowel Sounds, Tenderness (MID EPIGASTRIC) Genitalia: Deferred Pelvic: Deferred Rectal: Deferred Extremities: No calf tenderness, Normal capillary refill, Normal inspection, Normal range of motion, Non-tender, No pedal edema Musculoskeletal : Apperance: Normal Neurologic: Alert, business solutions architect II-XII nml as Tested, No Motor Deficits, Normal Affect, Normal Mood, No Sensory Deficits Cerebellar Function: Normal Reflexes: Normal Skin: Dry, Normal Color, Warm Lymphatic: No Adenopathy Was a procedure done? Was a procedure done?: No CP Differential Dx Differential Diagnosis: Anxiety / Panic Attack, Atrial Dysrhythmia, Hyperventilation, IL, Ventricular Dysrhythmia Differential Diagnosis: Chest Wall Pain, Costochondritis, Esophageal reflux/spasm, Gastritis, Pneumonia X-Ray, Labs, Meds, VS Vital Signs Date Time Temp Pulse Resp B/P (MAP) Pulse Ox O2 Delivery O2 Flow Rate FiO2 09/05/24 18:54 69 09/05/24 18:50 97.6 74 18 127/57 (80) 98 97.6 Lab Test 09/05/24 20:26 09/05/24 19:00 Range/Units Troponin I High Sensitivity < 3 L < 3 L </=34 ng/L White Blood Count 9.6 4.4-10.8 10^3/uL Red Blood Count 4.87 4.0-5.20 10^6/uL Hemoglobin 14.7 12.2-16.2 g/dL Hematocrit 44.3 36.0-46.0 % Mean Corpuscular Volume 90.9 80.0-100.0 fL Mean Corpuscular Hemoglobin 30.1 28.0-32.0 pg Mean Corpuscular Hemoglobin Concent 33.2 32.0-36.0 g/dL Red Cell Distribution Width 14.3 11.8-14.3 % Platelet Count 187 140-450 10^3/uL Mean Platelet Volume 8.8 6.9-10.8 fL Neutrophils (%) (Auto) 51.3 37.0-80.0 % Lymphocytes (%) (Auto) 36.0 10.0-50.0 % Monocytes (%) (Auto) 9.5 0.0-12.0 % Eosinophils (%) (Auto) 2.7 0.0-7.0 % Basophils (%) (Auto) 0.5 0.0-2.0 % Neutrophils # (Auto) 5.0 1.6-8.6 10 ^3/uL Lymphocytes # (Auto) 3.5 0.4-5.4 10 ^3/uL Monocytes # (Auto) 0.9 0-1.3 10 ^3/uL Eosinophils # (Auto) 0.3 0-0.8 10 ^3/uL Basophils # (Auto) 0 0-0.2 10 ^3/uL Nucleated Red Blood Cells 0.1 % Urine Color Colorless Yellow Urine Clarity Clear Clear Urine pH 6.5 5.0-9.0 Urine Specific [place] 1.005 1.001-1.035 Urine Protein Negative Negative Urine Ketones Negative Negative Urine Blood Trace H Negative /uL Urine Nitrite Negative Negative Urine Bilirubin Negative Negative Urine Urobilinogen Normal Negative mg/dL Urine Leukocyte Esterase Negative Negative /uL Urine RBC 1 0 - 4 /hpf Urine Microscopic WBC < 1 0-5 /HPF Urine Squamous Epithelial Cells Few <5 /hpf Urine Bacteria None seen None Seen /hpf Urine Glucose Normal Normal mg/dL Sodium Level 139 136-145 mmol/L Potassium Level 4.4 3.5-5.1 mmol/L Chloride Level 106 98-107 mmol/L Carbon Dioxide Level 23 20-31 mmol/L Anion Gap 10 5-15 Blood Urea Nitrogen 9 9-23 mg/dL Creatinine 0.65 0.550-1.02 mg/dL Glomerular Filtration Rate Calc 93 >90 mL/min BUN/Creatinine Ratio 13.8 10.0-20.0 Serum Glucose 96 74-106 mg/dL Calcium Level 9.7 8.7-10.4 mg/dL Total Bilirubin 0.8 0.2-1.0 mg/dL Aspartate Amino Transferase (AST) 30 13-40 U/L Alanine Aminotransferase (ALT) 29 7-40 U/L Alkaline Phosphatase 145 H 46-116 U/L B-Type Natriuretic Peptide 94.05 0-100 pg/mL Total Protein 6.6 5.7-8.2 g/dL Albumin 4.2 3.2-4.8 g/dL [place] [id number] Ph: [phone] DIAGNOSTIC IMAGING Diagnostic Imaging Report : [id number] Signed PATIENT: HERMAN RAI ACCT: [id number] UNIT: [id number] : 1950 LOC: ER ROOM / BED: / AGE / SEX: 73 / F ADM STATUS: REG ER SERVICE [id number] ORDERING PHYSICIAN: ANGELA LOPEZ PROCEDURE(s): CXR1 - CHEST XRAY 1 VIEW REASON: cp ORDER NUMBER(s): [id number], ACCESSION NUMBER(s): [id number] CHEST RADIOGRAPH Indication: cp Technique: Single frontal view of the chest was obtained Comparison: XY CHEST XRAY 1 VIEW on DOS: 03/06/24, CXRP on DOS: 03/16/22, CHEST PORTABLE on DOS: 03/16/22 FINDINGS: Lines and Tubes: None Lungs: No focal consolidation. Pleura: No effusion. No pneumothorax. Cardiomediastinal contours: Unremarkable Bones: No acute osseous abnormality. IMPRESSION: 1. No acute cardiopulmonary disease. ATED BY: JENNIFER THOMAS Jr., DO DICTATED DATE/TIME: 09/05/241937 SIGNED BY: JENNIFER THOMAS Jr., SIGNED DATE/TIME: 09/05/241937 CC: X-Ray, Labs, Meds, VS Comment Imaging: X-rays and CT scans were reviewed and interpreted by this provider, imaging shows no fractures and no pathological disease. Pending radiology review. Laboratory: Labs reviewed and interpreted by this provider. No significant abnormalities noted. Patient has prior medical visits reviewed. Med reconciliation performed Vital signs reviewed Time of 1ST Reevaluation: 20:00 Reevaluation 1ST: Unchanged Patient Education/Counseling: Diagnosis, Treatment, Need For Follow Up (Follow up with PCP in the next 2-4 days. Return to the emergency department in sudden 24 hours if symptoms worsen) Family Education/Counseling: No Family Present Departure 1 Departure Time of Disposition: 21:43 Impression: Primary Impression: Musculoskeletal chest pain Additional Impression: Reflux gastritis Disposition: HOME / SELF CARE / HOMELESS Condition: Fair e-Prescriptions Omeprazole (Omeprazole Dr) 40 Mg Cap 40 MG PO DAILY for 20 Days, #20 CAP Prov: ANGELA LOPEZ 09/05/24 Discharged With: Self Critical Care Note Critical Care Time?: No Stability Stability form required: No Heart Score Heart Score: Heart Score Response (Comments) Value History N/A 0 EKG Normal 0 Age >65 2 Risk Factors 1 or 2 risk factors 1 Troponin Normal limit 0 Total 3 I personally scribed for ANGELA LOPEZ AGRICULTURAL ECONOMICS TEACHER ([email or web address]) on 09/05/24 at 20:07. Electronically submitted by Eleanor Quiroz [email or web address]). I personally scribed for ANGELA LOPEZ AGRICULTURAL ECONOMICS TEACHER ([email or web address]) on 4/29/25 at 20:08. Electronically submitted by Eleanor Quiroz [email or web address]). ANGELA LOPEZ Sep 05, 2024 20:07
[2024-09-05] MEDS ORDERED: OMEP-448 PO (21:44)
[2024-09-05] MEDS: LIDOCAINE VISCOUS 2% 15ML UD MT ONE (23:00)
[2024-09-05] MEDS: MAALOX PLUS or MAALOX 30 ML PO ONE (23:00)
--- NOTE | 2024-09-07 12:45 | ECG ---
[facility] Test Date: 2024-09-05 Test Time: 18:54:06 Pat Name: HERMAN RAI Department: ED Room: Gender: F Mechanical Shovel Operator: YF : 1950 Requested By: ILENE BETANCOURT Order Number: [id number] Reading MD: Brady Mott Measurements Intervals [place] Rate: 69 P: 59 WI: 170 QRS: 9 QRSD: 81 T: 27 QT: 395 QTc: 423 Interpretive Statements Sinus rhythm Abnormal R-wave progression, early transition Electronically Signed On 09-07-2024 13:08:53 PDT by Brady Mott Please click the below link to view image of tracing.
== END 2024-09-05 23:17 | disposition home or self-care (01) ==
LOC: ER 18:52
DX: R07.89 Other chest pain (principal); K29.60 Other gastritis without bleeding; J45.909 Unspecified asthma, uncomplicated; I10 Essential (primary) hypertension; M19.90 Unspecified osteoarthritis, unspecified site; E78.5 Hyperlipidemia, unspecified; Z90.710 Acquired absence of both cervix and uterus; Z88.0 Allergy status to penicillin; Z79.899 Other long term (current) drug therapy; Z79.82 Long term (current) use of aspirin; Z79.52 Long term (current) use of systemic steroids; Z88.1 Allergy status to other antibiotic agents; Z79.891 Long term (current) use of opiate analgesic
CPT/HCPCS: 36415; 71045; 80053; 81001; 83880; 84484; 85025; 93005

== ENCOUNTER → 2024-09-18 | Outpatient (CLI) | payer OTHER, MEDICAID ==
[~2024-09-18] MED LIST changes: +OMEP-448 PO
[2024-09-18 10:23] LABS: Basophils # (auto) 0.1 10 ^3/uL (0-0.2); Basophils % (auto) 1.6 % (0.0-2.0); Eosinophils # (auto) 0.3 10 ^3/uL (0-0.8); Eosinophils % (auto) 3.7 % (0.0-7.0); Hematocrit 42.8 % (36.0-46.0); Hemoglobin 14.5 g/dL (12.2-16.2); Lymphocytes # (auto) 3.9 10 ^3/uL (0.4-5.4); Lymphocytes % (auto) 45.4 % (10.0-50.0); Mean Corpuscular Hemoglobin 30.8 pg (28.0-32.0); Mean Corpuscular Hgb Conc. 33.8 g/dL (32.0-36.0); Monocytes # (auto) 0.6 10 ^3/uL (0-1.3); Monocytes % (auto) 6.8 % (0.0-12.0); Neutrophils # (auto) 3.7 10 ^3/uL (1.6-8.6); Neutrophils % (auto) 42.5 % (37.0-80.0); Nucleated Red Blood Cells % 0.1 %; Platelet Count (auto) 207 10^3/uL (140-450); Red Blood Cells 4.71 10^6/uL (4.0-5.20); White Blood Cell 8.7 10^3/uL (4.4-10.8)
[2024-09-18 10:25] LABS: Urine Bacteria None Seen /hpf (None Seen)
[2024-09-18 10:40] LABS: Urine Amorphous Crystal FEW /hpf (None Seen); Urine Blood 1+ /uL (Negative); Urine Clarity Clear (Clear); Urine Color Light-Yellow (Yellow); Urine Protein, UAD Negative (Negative); Urine Specific Gravity 1.008 (1.001-1.035); Urine Squamous Epithelial Cell FEW /hpf (<5); Urine Urobilinogen Normal (Negative); Urine WBC 5 /HPF (0-5)
[2024-09-18 10:42] LABS: Alanine Aminotransferase 23 U/L (7-40); Albumin 4.4 g/dL (3.2-4.8); Alkaline Phosphatase 138 U/L (46-116); Anion Gap 9 (5-15); Aspartate Aminotransferase 27 U/L (13-40); BUN/Creatinine Ratio 11.8 (10.0-20.0); Bilirubin, Total 0.7 mg/dL (0.2-1.0); Blood Urea Nitrogen 8 mg/dL (9-23); Calcium 9.9 mg/dL (8.7-10.4); Carbon Dioxide 28 mmol/L (20-31); Chloride 105 mmol/L (98-107); Cholesterol 149 mg/dL (< 200); Glucose 98 mg/dL (74-106); HDL Cholesterol 53 mg/dL (40-59); LDL Cholesterol 88 mg/dL (< 100); Potassium 4.2 mmol/L (3.5-5.1); Sodium 142 mmol/L (136-145); Total Protein 7.3 g/dL (5.7-8.2); Triglycerides 77 mg/dL (< 150)
== END | disposition home or self-care (01) ==
LOC: LAB 09:52
PROVIDERS: ATTEND Nurse Practitioner Family
DX: I10 Essential (primary) hypertension (principal); E04.1 Nontoxic single thyroid nodule; E55.9 Vitamin D deficiency, unspecified; E78.5 Hyperlipidemia, unspecified; Z79.899 Other long term (current) drug therapy
CPT/HCPCS: 36415; 80053; 80061; 81001; 82306; 83036; 84443; 85025

== ENCOUNTER 2024-12-09 19:32 | Emergency (ER) | payer OTHER, MEDICAID ==
[~2024-12-09] VITALS: Ht 154.9 cm; Wt 72.7 kg
--- NOTE | 2024-12-09 21:43 | DVH ---
EXAM: XY R KNEE 3V XRAY REASON FOR EXAM: Pain TECHNIQUE: AP, lateral, and oblique views of the right knee are submitted for review. COMPARISON: None FINDINGS: There is mild demineralization of the bones. There is no acute fracture or dislocation. Th ere is no significant knee effusion. The soft tissues are grossly unremarkable. IMPRESSION: No acute fracture or dislocation.
--- NOTE | 2024-12-09 21:52 | ED.PDOC ---
History of Present Illness HPI Comments 74 y/o F is [id number] family for 4x day history of right knee pain, with associated poor appetite, nausea, and vomiting. Atraumatic and unprovoked onset, which has been progressively worsening since. History of unspecified knee condition. Denies any fever, chills, bloody of bilious vomitus, among others. Vital signs were stable at arrival. Chief Complaint: General Weakness Time Seen by MD: 20:15 Primary Care Provider: TAMMY Reviewed Notes: Nurses Notes, Medications, Allergies Allergies: Coded Allergies: Hydrocodone (Unverified Allergy, Unknown, 03/06/16) Iodine (Verified Allergy, Unknown, 06/07/14) Penicillins (Verified Allergy, Unknown, 06/07/14) Uncoded Allergies: CONTRAST (Allergy, Unknown, 06/17/19) Home Meds Active Scripts Omeprazole (Omeprazole Dr) 40 Mg Cap, 40 MG PO DAILY for 20 Days, #20 CAP Prov:ANGELA LOPEZ 09/05/24 Respiratory Therapy Supplies (Full Kit Nebulizer Set) Set Mis, UNIT XX, #1 Prov:BETZAIDA LIVINGSTON MD 03/06/24 Ipratropium-Albuterol (Ipratropium [place]/Albut) 1 Christal Christal, 1 CHRISTAL IN Q4HPRN PRN for 5 Days, #30 ML Prov:BETZAIDA LIVINGSTON MD 03/06/24 Prednisone (Prednisone) 20 Mg Tab, 20 MG PO DAILY for 4 Days, #4 MG Start on 03/07/2024 Prov:BETZAIDA LIVINGSTON MD 03/06/24 Hydrocortisone Base (Anusol-Hc) 2.5 % Cre, 1 APPLIC TOP BID, #30 GRAMS 2 Refills Prov:NADEEM DHILLON MD 02/07/24 Docusate Sodium (Colace) 100 Mg Cap, 1 CAP PO BID, #60 CAP Prov:NADEEM DHILLON MD 02/07/24 Hydrocodone-Acetaminophen (Hydrocodone Bitartrate/AC 5-325 mg) 1 Tab Tab, 1 TAB PO Q6HPRN PRN, #10 TAB Prov:NADEEM DHILLON MD 02/07/24 Ondansetron Odt 4MG Tab (ZOFRAN PO) 4 Mg Tb, 4 MG PO Q4HPRN PRN, #30 TAB ODT TAB-DISSOLVE IN MOUTH, THEN SWALLOW Prov:NADEEM DHILLON MD 02/07/24 Dicyclomine Hcl (BENTYL CAPSULE) 10 Mg Cp, 1 CAP PO TID, #90 CAP 3 Refills Prov:NADEEM DHILLON MD 02/07/24 Reported Medications Atorvastatin Calcium (Lipitor) Unknown Strength Tab, PO DAILY, TAB 01/26/24 Aspirin (Aspir-81) 81 Mg Tab, 81 MG PO DAILY, TAB 01/26/24 Fluticasone Propionate (FLOVENT HFA 110Mcg INH) 110 Mcg Ih, 110 MCG INH Q12HR for 30 Days, MCG 10/01/18 Information Source: Patient, Relative (Child) Mode of Arrival: Wheelchair Severity: Mild Timing: Days Duration: Since onset Prehospital treatment: None Past Medical History PAST MEDICAL HISTORY: Arthritis, Asthma, High Lipids, HTN Surgical History: Hysterectomy Surgical History (Other): Unknown history of internal right knee surgical procedure DIRECTOR CARDIAC History: No Pertinent DIRECTOR CARDIAC History Family History Family History: Reviewed,noncontributory to illness Social History Smoker: Non-Smoker Alcohol: Denies ETOH Use Drugs: Denies Drug Use Lives In: Home Constitutional: denies: chills, diaphoresis, fatigue, fever, malaise, sweats, weakness, others EENTM: denies: blurred vision, double vision, ear bleeding, ear discharge, ear drainage, ear pain, ear ringing, eye pain, eye redness, hearing loss, mouth pain, mouth swelling, nasal discharge, nose bleeding, nose congestion, nose pain, photophobia, tearing, throat pain, throat swelling, voice changes, others Respiratory: denies: cough, hemoptysis, orthopnea, SOB at rest, shortness of breath, SOB with excertion, stridor, wheezing, others Cardiovascular: denies: chest pain, dizzy spells, diaphoresis, Dyspnea on exertion, edema, irregular heart beat, left arm pain, lightheadedness, palpitations, PND, syncope, others Gastrointestinal: denies: abdomen distended, abdominal pain, blood streaked bowels, constipated, diarrhea, dysphagia, difficulty swallowing, hematemesis, m lanny, nausea, poor appetite, poor fluid intake, rectal bleeding, rectal pain, vomiting, others Genitourinary: denies: abnormal vagina bleeding, burning, dyspareunia, dysuria, flank pain, frequency, hematuria, incontinence, pain, , vagina discharge, urgency, others Neurological: denies: dizziness, fainting, headache, left sided numbness, left sided weakness, numbness, paresthesia, pre-existing deficit, right sided numbness, right sided weakness, seizure, speech problems, tingling, tremors, weakness, others Musculoskeletal: reports: others (Right knee pain); denies: back pain, gout, joint pain, joint swelling, muscle pain, muscle stiffness, neck pain Integumetry: denies: bruises, change in color, change in hair/nails, dryness, laceration, lesions, lumps, rash, wounds, others Allergic/Immunocompromised: denies: Difficulty Healing, Frequent Infections, Hives, Itching, others Hematologic/Lymphatic: denies: anemia, blood clots, easy bleeding, easy bruising, swollen glands, others Endocrine: denies: excessive hunger, excessive sweating, excessive thirst, excessive urination, flushing, intolerance to cold, intolerance to heat, unexplained weight gain, unexplained weight loss, others Psychiatric: denies: anxiety, bipolar disorder, depression, hopeless, panic disorder, schizophrenia, sleepless, suicidal, others All Other Systems: Reviewed and Negative (Comprehensive review of systems are negative unless otherwise stated in HPI) Physical Exam General Appearance: Moderate Distress (Due to right knee pain concerns. P atient can not bear weight.), Obese HEENT: Normal ENT Inspection, Pharynx Normal, TMs Normal Neck: Full Range of Motion, Non-Tender, Normal, Normal Inspection Respiratory: Chest Non-Tender, Lungs Clear, No Accessory Muscle Use, No Respiratory Distress, Normal Breath Sounds Cardiovascular: No Edema, No JVD, No Murmur, No Gallop, Normal Peripheral Pulses, Regular Rate/Rhythm Breast Exam: Deferred Gastrointestinal: No Organomegaly, Non Tender, No Pulsatile Mass, Normal Bowel Sounds, Soft Genitalia: Deferred Pelvic: Deferred Rectal: Deferred Extremities: Other (Diffuse anterior right knee tenderness to palpation throughout extending into the medial and lateral aspect. Knee looks edematous without ecchymosis or signs of recent trauma. Unable to appreciate any laparoscopic or definitive surgical intervention sites. Significant reduced range of motion. Patient can not bear weight.) Neurologic: Alert, resource efficiency manager II-XII nml as Tested, No Motor Deficits, Normal Affect, Normal Mood, No Sensory Deficits Cerebellar Function: NOT DONE Reflexes: NOT DONE Skin: Dry, Normal Color, Warm Lymphatic: No Adenopathy Was a procedure done? Was a procedure done?: No Differential Dx Considerations may include: fracture, dislocation, contusions, degenerative joint disease, among others X-Ray, Labs, Meds, VS Vital Signs Date Time Temp Pulse Resp B/P (MAP) Pulse Ox O2 Delivery O2 Flow Rate FiO2 12/09/24 21:58 98.1 64 16 152/72 (98) 95 98.1 12/09/24 19:36 98.3 76 16 149/66 98 98.3 Current Medications Medications (Trade) Dose Ordered Sig/Bernabe Route Start Time Stop Time Status Last Admin Acetaminophen/ Hydrocodone Bitart ([place] 10/325MG Tab) 1 tab ONCE ONCE PO 12/09/24 20:15 12/09/24 20:16 DC 12/09/24 22:20 X-Ray, Labs, Meds, VS Comment All studies performed in the ED were evaluated by me personally. Imaging studies of the right knee shows some degeneration of the joint without any acute fracture. Patient will need to follow up with the primary care provider for continued evaluation and management. Time of 1ST Reevaluation: 23:58 Reevaluation 1ST: Improved Consultation: PCP Patient Education/Counseling: Diagnosis, Treatment Family Education/Counseling: Diagnosis, Treatment, No Family Present SEPSIS Sepsis Screen Date sepsis recognized/suspect: Dec 09, 2024 Time Sepsis recognized/suspect: 1940 Recent Procedure: No On Antibiotic Therapy: No Respiratory Rate >20: No Heart Rate >90: No Temp<36 C (96.8 F) or >38.3 C: No SBP <90 or MAP <65 mmHG: No New Acute Mental Status Change: No Is the patient on CPAP, BIPAP,: No Physician Orders R Knee 3v Xray (12/09/24 20:15) Vital Signs Date Time Temp Pulse Resp B/P (MAP) Pulse Ox O2 Delivery O2 Flow Rate FiO2 12/09/24 21:58 98.1 64 16 152/72 (98) 95 98.1 12/09/24 19:36 98.3 76 16 149/66 98 98.3 Medications Medications Dose Ordered Sig/Bernabe Route Start Time Stop Time Status Last Admin Dose Admin Acetaminophen/ Hydrocodone Bitart 1 tab ONCE ONCE PO 12/09/24 20:15 12/09/24 20:16 DC 12/09/24 22:20 Departure 1 Departure Time of Disposition: 23:58 Impression: Primary Impression: Internal derangement of knee Disposition: HOME / SELF CARE / HOMELESS Condition: Stable Additional Instructions: Advised patient utilize pain medication as needed as well as ice therapy. If symptoms continue, patient will need to follow up with the primary care provider for long-term management and possible orthopedic referral. e-Prescriptions Hydrocodone-Acetaminophen (Hydrocodone Bitartrate/AC 5-325 mg) 1 Tab Tab 1 TAB PO Q6HP PRN, #20 TAB Prov: CORNELIO AZUL PAC 12/10/24 Discharged With: Self, Relative Critical Care Note Critical Care Time?: No Stability Stability form required: No Heart Score Heart Score: Heart Score Response (Comments) Value History N/A 0 EKG N/A 0 Age N/A 0 Risk Factors N/A 0 Troponin N/A 0 Total 0 I personally scribed for CORNELIO AZUL PAC ([email or web address]) on 12/09/24 at 21:52. Electronically submitted by Hudson Marcelo ([email or web address]). CORNELIO AZUL PAC Dec 09, 2024 21:52
[2024-12-09] MEDS: HYDROcodone-ACET 10/325MG TAB PO ONE (22:20)
[2024-12-10] MEDS ORDERED: HYDR-4902 PO (00:12)
[2024-12-10 00:37] VITALS: BP 149/71; PULSE 68; TEMP 97.5; O2SAT 96
[2024-12-10 00:39] VITALS: RESP 18
== END 2024-12-10 00:48 | disposition home or self-care (01) ==
LOC: ER 19:32
DX: M23.91 Unspecified internal derangement of right knee (principal); I10 Essential (primary) hypertension; E78.5 Hyperlipidemia, unspecified; J45.909 Unspecified asthma, uncomplicated; M19.90 Unspecified osteoarthritis, unspecified site; Z88.8 Allergy status to other drugs, medicaments and biological substances; Z88.5 Allergy status to narcotic agent; Z79.899 Other long term (current) drug therapy; Z79.82 Long term (current) use of aspirin; Z79.52 Long term (current) use of systemic steroids; Z79.51 Long term (current) use of inhaled steroids; Z88.0 Allergy status to penicillin; Z90.710 Acquired absence of both cervix and uterus
CPT/HCPCS: 73562; 82947

== ENCOUNTER 2025-01-10 08:58 | Outpatient (CLI) | payer OTHER, MEDICAID ==
[2025-01-10 09:43] LABS: Hematocrit 43.9 % (36.0-46.0); Hemoglobin 14.9 g/dL (12.2-16.2); Mean Corpuscular Hemoglobin 30.9 pg (28.0-32.0); Mean Corpuscular Volume 90.7 fL (80.0-100.0); Nucleated Red Blood Cells % 0.0 %
[2025-01-10 09:48] LABS: Urine Protein, UAD Negative (Negative)
[2025-01-10 10:17] LABS: Alanine Aminotransferase 30 U/L (7-40); Albumin 4.2 g/dL (3.2-4.8); Anion Gap 9 (5-15); BUN/Creatinine Ratio 14.7 (10.0-20.0); Blood Urea Nitrogen 10 mg/dL (9-23); Calcium 9.7 mg/dL (8.7-10.4); Carbon Dioxide 26 mmol/L (20-31); Chloride 105 mmol/L (98-107); Cholesterol 157 mg/dL (< 200); Glucose 90 mg/dL (74-106); Potassium 4.3 mmol/L (3.5-5.1); Sodium 140 mmol/L (136-145); Total Protein 7.2 g/dL (5.7-8.2); Triglycerides 83 mg/dL (< 150)
[2025-01-10 10:18] LABS: Bilirubin, Total 0.7 mg/dL (0.2-1.0); HDL Cholesterol 52 mg/dL (40-59)
[2025-01-10 10:34] LABS: Alkaline Phosphatase 134 U/L (46-116)
== END 2025-01-10 17:00 | disposition home or self-care (01) ==
LOC: LAB 08:58
PROVIDERS: ATTEND Nurse Practitioner Family
DX: I10 Essential (primary) hypertension (principal); E03.9 Hypothyroidism, unspecified; E78.5 Hyperlipidemia, unspecified; E04.1 Nontoxic single thyroid nodule; E55.9 Vitamin D deficiency, unspecified; Z79.899 Other long term (current) drug therapy
CPT/HCPCS: 36415; 80053; 80061; 81001; 82306; 83036; 84439; 84443; 85025

== ENCOUNTER 2025-04-02 09:19 | Outpatient (CLI) | payer OTHER, MEDICAID ==
[2025-04-02 09:56] LABS: Hematocrit 44.9 % (36.0-46.0); Hemoglobin 15.0 g/dL (12.2-16.2); Mean Corpuscular Hemoglobin 30.9 pg (28.0-32.0); Mean Corpuscular Volume 92.1 fL (80.0-100.0); Nucleated Red Blood Cells % 0.2 %
[2025-04-02 10:16] LABS: Alanine Aminotransferase 39 U/L (7-40); Albumin 4.2 g/dL (3.2-4.8); Anion Gap 7 (5-15); BUN/Creatinine Ratio 12.3 (10.0-20.0); Blood Urea Nitrogen 10 mg/dL (9-23); Calcium 9.7 mg/dL (8.7-10.4); Carbon Dioxide 30 mmol/L (20-31); Chloride 105 mmol/L (98-107); Cholesterol 183 mg/dL (< 200); Glucose 85 mg/dL (74-106); HDL Cholesterol 52 mg/dL (40-59); Potassium 4.7 mmol/L (3.5-5.1); Sodium 142 mmol/L (136-145); Total Protein 7.2 g/dL (5.7-8.2); Triglycerides 124 mg/dL (< 150)
[2025-04-02 10:17] LABS: Bilirubin, Total 0.5 mg/dL (0.2-1.0)
[2025-04-02 10:18] LABS: Alkaline Phosphatase 144 U/L (46-116)
[2025-04-02 10:19] LABS: Urine Protein, UAD Negative (Negative)
== END 2025-04-02 17:00 | disposition home or self-care (01) ==
LOC: LAB 09:19
PROVIDERS: ATTEND Nurse Practitioner Family
DX: E78.5 Hyperlipidemia, unspecified (principal); E03.9 Hypothyroidism, unspecified; E55.9 Vitamin D deficiency, unspecified; R73.03 Prediabetes
CPT/HCPCS: 36415; 80053; 80061; 81001; 82306; 82607; 83036; 84443; 85025

== ENCOUNTER 2025-04-29 13:20 | Inpatient (IN) | payer OTHER, MEDICAID ==
[~2025-04-29] VITALS: Ht 152.4 cm; Wt 81.5 kg
[2025-04-29 14:27] LABS: Urine Protein, UAD Negative (Negative)
[2025-04-29 14:28] LABS: Hematocrit 45.2 % (36.0-46.0); Hemoglobin 15.1 g/dL (12.2-16.2); Mean Corpuscular Hemoglobin 30.6 pg (28.0-32.0); Mean Corpuscular Volume 91.8 fL (80.0-100.0); Nucleated Red Blood Cells % 0.1 %
[2025-04-29 14:33] LABS: Potassium 4.7 mmol/L (3.5-5.1); Sodium 140 mmol/L (136-145)
[2025-04-29 14:34] LABS: Anion Gap 7 (5-15); Calcium 9.7 mg/dL (8.7-10.4); Carbon Dioxide 26 mmol/L (20-31)
[2025-04-29 14:39] LABS: BUN/Creatinine Ratio 13.0 (10.0-20.0); Blood Urea Nitrogen 10 mg/dL (9-23); Glucose 90 mg/dL (74-106)
[2025-04-29 14:41] LABS: Chloride 107 mmol/L (98-107)
--- NOTE | 2025-04-29 15:02 | DVH ---
EXAM: CT CT AB PEL WO CON-NO ORAL OR IV HISTORY: colits Comparison Study: CT CT AB PEL WO CON-NO ORAL OR IV on DOS: 02/06/24, MRI MRI ABDOMEN W AND WO on DOS: 08/20/23 Exam Date: 04/29/2025 02:09 PM Radiation Dose Information: CT Dose: CTDI volume is 21 mGy. Dose-length product is 1042 mGy*cm TECHNIQUE: Multidetector CT of the abdomen and pelvis was performed. Imaging was performed without IV contrast. Axial, coronal and sagittal multiplanar reformats were obtained from the axial data set by the technologist. FINDINGS: Lack of intravenous contrast compromises evaluation of perfusion and for isodense lesions. Lower chest: Clear. Liver: Unremarkable Biliary system: Unremarkable Spleen: Unremarkable Pancreas: Unremarkable. Adrenals: Unremarkable. Kidneys and ureters: No hydronephrosis . Unchanged cortical calcification in the left kidney. Bowel: No obstruction. Scattered colonic diverticula. Normal appendix. Small hiatal hernia. Bladder: Punctate focus of air within the bladder. Reproductive organs: No abnormal mass. Lymph nodes: Unremarkable. Peritoneum: Unremarkable Vessels: Patency not evaluated on this noncontrast study. Bones and soft tissue: No aggressive osseous lesion IMPRESSION: Punctate focus of air within the bladder. Correlate for recent instrumentation.
--- NOTE | 2025-04-29 15:05 | ED.PDOC ---
GI ASSESSMENT HPI Comments 74 y/o F, with PMHx of asthma, HLD, and HTN presents to the ED for CC of abdominal pain. Patient states, she has been experiencing suprapubic abdominal pain with associated symptoms nausea, diarrhea, and dysuria onset last night (04/29/25). Patient reports, to have further associated pelvic pain when urinating. Patient denies melena, hematemesis, or hematuria. Chief Complaint: Pelvic Pain Time Seen by MD: 15:00 Primary Care Provider: TAMMY Reviewed Notes: Nurses Notes, Medications, Allergies Allergies: Coded Allergies: Hydrocodone (Unverified Allergy, Unknown, 03/06/16) Iodine (Verified Allergy, Unknown, 06/07/14) Penicillins (Verified Allergy, Unknown, 06/07/14) Uncoded Allergies: CONTRAST (Allergy, Unknown, 06/17/19) Home Meds Active Scripts Hydrocodone-Acetaminophen (Hydrocodone Bitartrate/AC 5-325 mg) 1 Tab Tab, 1 TAB PO Q6HP PRN, #20 TAB Prov:CORNELIO AZUL PAC 12/10/24 Omeprazole (Omeprazole Dr) 40 Mg Cap, 40 MG PO DAILY for 20 Days, #20 CAP Prov:ANGELA CONTRERAS ASSISTED LIVING CARE MANAGER 09/05/24 Respiratory Therapy Supplies (Full Kit Nebulizer Set) Set Mis, UNIT XX, #1 Prov:BETZAIDA LIVINGSTON MD 03/06/24 Ipratropium-Albuterol (Ipratropium Staples/Albut) 1 Christal Christal, 1 CHRISTAL IN Q4HPRN PRN for 5 Days, #30 ML Prov:BETZAIDA LIVINGSTON MD 03/06/24 Prednisone (Prednisone) 20 Mg Tab, 20 MG PO DAILY for 4 Days, #4 MG Start on 03/07/2024 Prov:BETZAIDA LIVINGSTON MD 03/06/24 Hydrocortisone Base (Anusol-Hc) 2.5 % Cre, 1 APPLIC TOP BID, #30 GRAMS 2 Refills Prov:NADEEM DHILLON MD 02/07/24 Docusate Sodium (Colace) 100 Mg Cap, 1 CAP PO BID, #60 CAP Prov:NADEEM DHILLON MD 02/07/24 Hydrocodone-Acetaminophen (Hydrocodone Bitartrate/AC 5-325 mg) 1 Tab Tab, 1 TAB PO Q6HPRN PRN, #10 TAB Prov:NADEEM DHILLON MD 02/07/24 Ondansetron Odt 4MG Tab (ZOFRAN PO) 4 Mg Tb, 4 MG PO Q4HPRN PRN, #30 TAB ODT TAB-DISSOLVE IN MOUTH, THEN SWALLOW Prov:NADEEM DHILLON MD 02/07/24 Dicyclomine Hcl (BENTYL CAPSULE) 10 Mg Cp, 1 CAP PO TID, #90 CAP 3 Refills Prov:NADEEM DHILLON MD 02/07/24 Reported Medications Atorvastatin Calcium (Lipitor) Unknown Strength Tab, PO DAILY, TAB 01/26/24 Aspirin (Aspir-81) 81 Mg Tab, 81 MG PO DAILY, TAB 01/26/24 Fluticasone Propionate (FLOVENT HFA 110Mcg INH) 110 Mcg Ih, 110 MCG INH Q12HR for 30 Days, MCG 10/01/18 Information Source: Patient Mode of Arrival: Wheelchair Timing: Hours Duration: Since onset Prehospital treatment: None Vomitus: Watery Stool: Watery Severity: Moderate Recent: None Recent Hx of: None Pain Location: Suprapubic Modifying Factors: Nothing Associated sign and symptoms: Nausea, Vomiting, Diarrhea, Abdominal Pain Past Medical History PAST MEDICAL HISTORY: Arthritis, Asthma, High Lipids, HTN Surgical History: Hysterectomy UNIFORM FORCE CAPTAIN History: No Pertinent UNIFORM FORCE CAPTAIN History Family History Family History: Reviewed,noncontributory to illness Social History Smoker: Non-Smoker Alcohol: Denies ETOH Use Drugs: Denies Drug Use Lives In: Home Constitutional: denies: chills, diaphoresis, fatigue, fever, malaise, sweats, weakness, others EENTM: denies: blurred vision, double vision, ear bleeding, ear discharge, ear drainage, ear pain, ear ringing, eye pain, eye redness, hearing loss, mouth pain, mouth swelling, nasal discharge, nose bleeding, nose congestion, nose pa in, photophobia, tearing, throat pain, throat swelling, voice changes, others Respiratory: denies: cough, hemoptysis, orthopnea, SOB at rest, shortness of breath, SOB with excertion, stridor, wheezing, others Cardiovascular: denies: chest pain, dizzy spells, diaphoresis, Dyspnea on exertion, edema, irregular heart beat, left arm pain, lightheadedness, palpitations, PND, syncope, others Gastrointestinal: reports: abdominal pain, diarrhea, nausea, poor appetite, vomiting; denies: abdomen distended, blood streaked bowels, constipated, dysphagia, difficulty swallowing, hematemesis, melena, poor fluid intake, rectal bleeding, rectal pain, others Genitourinary: reports: dysuria; denies: abnormal vagina bleeding, burning, dyspareunia, flank pain, frequency, hematuria, incontinence, pain, , vagina discharge, urgency, others Neurological: denies: dizziness, fainting, headache, left sided numbness, left sided weakness, numbness, paresthesia, pre-existing deficit, right sided numbness, right sided weakness, seizure, speech problems, tingling, tremors, weakness, others Musculoskeletal: denies: back pain, gout, joint pain, joint swelling, muscle pain, muscle stiffness, neck pain, others Integumetry: denies: bruises, change in color, change in hair/nails, dryness, laceration, lesions, lumps, rash, wounds, others Allergic/Immunocompromised: denies: Difficulty Healing, Frequent Infections, Hives, Itching, others Hematologic/Lymphatic: denies: anemia, blood clots, easy bleeding, easy bruising, swollen glands, others Endocrine: denies: excessive hunger, excessive sweating, excessive thirst, excessive urination, flushing, intolerance to cold, intolerance to heat, unexplained weight gain, unexplained weight loss, others Psychiatric: denies: anxiety, bipolar disorder, depression, hopeless, panic disorder, schizophrenia, sleepless, suicidal, others All Other Systems: Reviewed and Negative Physical Exam General Appearance: Moderate Distress HEENT: Normal ENT Inspection, Pharynx Normal, TMs Normal Neck: Full Range of Motion, Non-Tender, Normal, Normal Inspection Respiratory: Chest Non-Tender, Lungs Clear, No Accessory Muscle Use, No Respiratory Distress, Normal Breath Sounds Cardiovascular: No Edema, No JVD, No Murmur, No Gallop, Normal Peripheral Pulses, Regular Rate/Rhythm Breast Exam: Deferred Gastrointestinal: No Organomegaly, Non Tender, No Pulsatile Mass, Normal Bowel Sounds, Soft Genitalia: Deferred Pelvic: Deferred Rectal: Deferred Extremities: No calf tenderness, Normal capillary refill, Normal inspection, Normal range of motion, Non-tender, No pedal edema Musculoskeletal : Apperance: Normal Neurologic: Alert, consultant nurse II-XII nml as Tested, No Motor Deficits, Normal Affect, Normal Mood, No Sensory Deficits Cerebellar Function: Normal Reflexes: Normal Skin: Dry, Normal Color, Warm Peripheral Pulses: 3+ Radial (R), 3+ Radial (L) Lymphatic: No Adenopathy Was a procedure done? Was a procedure done?: No GI differential Dx Differential Diagnosis: Constipation, Diverticular disease, Esophagitis, Gastritis/PUD, Gastroenteritis, Inflammatory BD, Electrolyte Imbalance, Bacterial, Viral X-Ray, Labs, Meds, VS Vital Signs Date Time Temp Pulse Resp B/P (MAP) Pulse Ox O2 Delivery O2 Flow Rate FiO2 04/29/25 13:21 97.6 76 16 116/76 98 97.6 Lab Test 04/29/25 14:18 04/29/25 13:32 Range/Units White Blood Count 9.1 4.4-10.8 10^3/uL Red Blood Count 4.92 4.0-5.20 10^6/uL Hemoglobin 15.1 12.2-16.2 g/dL Hematocrit 45.2 36.0-46.0 % Mean Corpuscular Volume 91.8 80.0-100.0 fL Mean Corpuscular Hemoglobin 30.6 28.0-32.0 pg Mean Corpuscular Hemoglobin Concent 33.3 32.0-36.0 g/dL Red Cell Distribution Width 14.0 11.8-14.3 % Platelet Count 208 140-450 10^3/uL Mean Platelet Volume 8.8 6.9-10.8 fL Neutrophils (%) (Auto) 56.9 37.0-80.0 % Lymphocytes (%) (Auto) 31.2 10.0-50.0 % Monocytes (%) (Auto) 8.0 0.0-12.0 % Eosinophils (%) (Auto) 3.1 0.0-7.0 % Basophils (%) (Auto) 0.8 0.0-2.0 % Neutrophils # (Auto) 5.2 1.6-8.6 10 ^3/uL Lymphocytes # (Auto) 2.8 0.4-5.4 10 ^3/uL Monocytes # (Auto) 0.7 0-1.3 10 ^3/uL Eosinophils # (Auto) 0.3 0-0.8 10 ^3/uL Basophils # (Auto) 0.1 0-0.2 10 ^3/uL Nucleated Red Blood Cells 0.1 % Sodium Level 140 136-145 mmol/L Potassium Level 4.7 3.5-5.1 mmol/L Chloride Level 107 98-107 mmol/L Carbon Dioxide Level 26 20-31 mmol/L Anion Gap 7 5-15 Blood Urea Nitrogen 10 9-23 mg/dL Creatinine 0.77 0.550-1.02 mg/dL Glomerular Filtration Rate Calc 81 >90 mL/min BUN/Creatinine Ratio 13.0 10.0-20.0 Serum Glucose 90 74-106 mg/dL Calcium Level 9.7 8.7-10.4 mg/dL Urine Color Colorless Yellow Urine Clarity Clear Clear Urine pH 6.5 5.0-9.0 Urine Specific [place] 1.002 1.001-1.035 Urine Protein Negative Negative Urine Ketones Negative Negative Urine Blood Trace H Negative /uL Urine Nitrite Negative Negative Urine Bilirubin Negative Negative Urine Urobilinogen Normal Negative mg/dL Urine Leukocyte Esterase 3+ Negative /uL Urine RBC 1 0 - 4 /hpf Urine Microscopic WBC 9 H 0-5 /HPF Urine Squamous Epithelial Cells Few <5 /hpf Urine Bacteria Few H None Seen /hpf Urine Glucose Normal Normal mg/dL Patient alert. Came in because of abdominal pain. UA shows UTI. Vitals stable. Answering questions. She continues to have abdominal pain. WBC within normal limits. Possible sepsis from urine. Continue to monitoring. Time of 1ST Reevaluation: 15:30 Reevaluation 1ST: Unchanged Patient Education/Counseling: Diagnosis, Treatment Family Education/Counseling: No Family Present SEPSIS Sepsis Screen Date sepsis recognized/suspect: Apr 29, 2025 Time Sepsis recognized/suspect: 1321 Recent Procedure: No On Antibiotic Therapy: No Respiratory Rate >20: No Heart Rate >90: No Temp<36 C (96.8 F) or >38.3 C: No SBP <90 or MAP <65 mmHG: No New Acute Mental Status Change: No Is the patient on CPAP, BIPAP,: No Physician Orders Ct Ab Pel Wo Con-No Oral Or Iv (04/29/25 14:01) Vital Signs Date Time Temp Pulse Resp B/P (MAP) Pulse Ox O2 Delivery O2 Flow Rate FiO2 04/29/25 13:21 97.6 76 16 116/76 98 97.6 Laboratory Tests Test 04/29/25 14:18 White Blood Count 9.1 10^3/uL (4.4-10.8) Departure 1 Departure Time of Disposition: 15:09 Impression: Primary Impression: Sepsis due to urinary tract infection Additional Impression: Acute abdominal pain Disposition: ADMITTED INPATIENT Admit to: Med Surg Condition: Guarded Critical Care Note Critical Care Time?: No Stability Stability form required: No Heart Score Heart Score: Heart Score Response (Comments) Value History N/A 0 EKG N/A 0 Age N/A 0 Risk Factors N/A 0 Troponin N/A 0 Total 0 I personally scribed for BELLE HACKETT MD ([email or web address]) on 04/29/25 at 15:05. Electronically submitted by Eleanor Quiroz [email or web address]). BELLE HACKETT MD Apr 29, 2025 15:05
[2025-04-29] MEDS ORDERED: MORPHINE SULFATE INJ 2 MG/ml SYRG IV PRN ×2 (17:15)
[2025-04-29] MEDS ORDERED: DOCUSATE SOD 100 MG CAP PO PRN (17:15)
[2025-04-29] MEDS ORDERED: NITROGLYCERIN 0.4 MG SL TAB SL PRN (17:15)
[2025-04-29] MEDS ORDERED: ONDANSETRON HCL 4 MG/2 ML VIAL IV PRN (17:15)
--- NOTE | 2025-04-29 17:37 | DVHHPRES ---
History of Present Illness Resident Creating Document: KAREL CAGLE RESIDENT History of Present Illness Yessi Montejo 74 f with a PMH of HTN, liver cirrhosis, unspecified kidney pus, thyroidectomy presented to the ED with the chief complaints of urinary symptoms for 2 days. Patient reported that she has been having painful micturition, urgency, frequency, lower abdominal pain, nausea, vomiting, pain radiating to her back and hips bilaterally which prompted her to visit ED. She also reported constipation. Patient denies other symptoms PMH: HTN, cirrhosis, unspecified kidney mass , asthma PSH: Thyroidectomy Family history: Noncontributory Social history: Lives at home. Denies smoking, alcohol and other drug abuse Allergies: Penicillin caused skin breakout, contrast caused vomiting, hydrocodone ROS: Patient seen and examined at the bedside. Positive for nausea, vomiting, constipation, dysuria, frequency, urgency, lower back pain. But rest of ROS is negative Review of Systems Allergies: Coded Allergies: Hydrocodone (Unverified Allergy, Unknown, 03/06/16) Iodine (Verified Allergy, Unknown, 06/07/14) Penicillins (Verified Allergy, Unknown, 06/07/14) Uncoded Allergies: CONTRAST (Allergy, Unknown, 06/17/19) Medications Current Medications Medications Dose Ordered Sig/Bernabe Route Start Time Stop Time Status Last Admin Dose Admin Sodium Chloride 10 ml Q8HR IV 04/29/25 22:00 Ondansetron HCl 4 mg Q4HP PRN IV 04/29/25 17:15 Docusate Sodium 100 mg BIDPRN PRN PO 04/29/25 17:15 Enoxaparin Sodium 40 mg DAILY SC 04/30/25 10:00 UNV Acetaminophen 650 mg Q6HP PRN PO 04/29/25 17:15 UNV Morphine Sulfate 2 mg Q4HPRN PRN IV 04/29/25 17:15 UNV Nitroglycerin 0.4 mg Q5MINP PRN SL 04/29/25 17:15 Morphine Sulfate 2 mg Q30M PRN IV 04/29/25 17:15 UNV Lactulose 30 ml DAILY PO 04/29/25 17:15 Levofloxacin/ Dextrose 100 ml @ 100 mls/hr DAILY IV 04/29/25 17:15 Exam Vital Signs Vital Signs Date Time Temp Pulse Resp B/P (MAP) Pulse Ox O2 Delivery O2 Flow Rate FiO2 04/29/25 16:56 97.4 63 20 139/70 (93) 95 97.4 Exam Pt is lying on bed General Appearance: Alert, Oriented X3, Cooperative, Not in acute distress HEENT: Atraumatic, Mucous membranes moist/pink Respiratory: Clear to auscultation, Normal air movement, No added sounds Cardiovascular: Regular rate, Normal S1, Normal S2, No murmurs Abdominal: Active bowel sounds, Soft, no distention, : Suprapubic tenderness, bilateral flank tenderness Extremities: No edema, Normal pulses, No tenderness/swelling Skin: No Significant rash, except past surgical scars Neuro: Normal speech, sensorimotor deficits none Psych/Mental Status: Mental status NL, Mood NL Nurse was there as environmental scientist during examination Labs/Xrays Labs Test 04/29/25 14:18 04/29/25 13:32 Range/Units White Blood Count 9.1 4.4-10.8 10^3/uL Red Blood Count 4.92 4.0-5.20 10^6/uL Hemoglobin 15.1 12.2-16.2 g/dL Hematocrit 45.2 36.0-46.0 % Mean Corpuscular Volume 91.8 80.0-100.0 fL Mean Corpuscular Hemoglobin 30.6 28.0-32.0 pg Mean Corpuscular Hemoglobin Concent 33.3 32.0-36.0 g/dL Red Cell Distribution Width 14.0 11.8-14.3 % Platelet Count 208 140-450 10^3/uL Mean Platelet Volume 8.8 6.9-10.8 fL Neutrophils (%) (Auto) 56.9 37.0-80.0 % Lymphocytes (%) (Auto) 31.2 10.0-50.0 % Monocytes (%) (Auto) 8.0 0.0-12.0 % Eosinophils (%) (Auto) 3.1 0.0-7.0 % Basophils (%) (Auto) 0.8 0.0-2.0 % Neutrophils # (Auto) 5.2 1.6-8.6 10 ^3/uL Lymphocytes # (Auto) 2.8 0.4-5.4 10 ^3/uL Monocytes # (Auto) 0.7 0-1.3 10 ^3/uL Eosinophils # (Auto) 0.3 0-0.8 10 ^3/uL Basophils # (Auto) 0.1 0-0.2 10 ^3/uL Nucleated Red Blood Cells 0.1 % Sodium Level 140 136-145 mmol/L Potassium Level 4.7 3.5-5.1 mmol/L Chloride Level 107 98-107 mmol/L Carbon Dioxide Level 26 20-31 mmol/L Anion Gap 7 5-15 Blood Urea Nitrogen 10 9-23 mg/dL Creatinine 0.77 0.550-1.02 mg/dL Glomerular Filtration Rate Calc 81 >90 mL/min BUN/Creatinine Ratio 13.0 10.0-20.0 Serum Glucose 90 74-106 mg/dL Calcium Level 9.7 8.7-10.4 mg/dL Urine Color Colorless Yellow Urine Clarity Clear Clear Urine pH 6.5 5.0-9.0 Urine Specific [place] 1.002 1.001-1.035 Urine Protein Negative Negative Urine Ketones Negative Negative Urine Blood Trace H Negative /uL Urine Nitrite Negative Negative Urine Bilirubin Negative Negative Urine Urobilinogen Normal Negative mg/dL Urine Leukocyte Esterase 3+ Negative /uL Urine RBC 1 0 - 4 /hpf Urine Microscopic WBC 9 H 0-5 /HPF Urine Squamous Epithelial Cells Few <5 /hpf Urine Bacteria Few H None Seen /hpf Urine Glucose Normal Normal mg/dL SEPSIS Sepsis Screen Date sepsis recognized/suspect: Apr 29, 2025 Time Sepsis recognized/suspect: 1321 Recent Procedure: No On Antibiotic Therapy: No Respiratory Rate >20: No Heart Rate >90: No Temp<36 C (96.8 F) or >38.3 C: No SBP <90 or MAP <65 mmHG: No New Acute Mental Status Change: No Is the patient on CPAP, BIPAP,: No Physician Orders Ct Ab Pel Wo Con-No Oral Or Iv (04/29/25 14:01) Admit (04/29/25 17:03) Allergies (04/29/25 17:03) Code Status (04/29/25 17:03) Sodium Chloride Lock (Saline Lock Ns) (04/29/25 22:00) Ondansetron Hcl (Zofran) (04/29/25 17:15) Docusate Sodium Capsule (Colace Capsule) (04/29/25 17:15) Enoxaparin Sodium (Lovenox) (04/30/25 10:00) Complete Blood Count (04/30/25 04:00) Comprehensive Metabolic Panel (04/30/25 04:00) Cardiac Diet-2gna,Lofat,Lochol (04/29/25 Dinner) Condition: Fair (04/29/25 17:03) Acetaminophen Tablet (Tylenol Tablet) (04/29/25 17:15) Morphine Sulfate Injection (04/29/25 17:15) Nitroglycerin Sublingual (Ntrostat Subli (04/29/25 17:15) Morphine Sulfate Injection (04/29/25 17:15) Oxygen By Nasal Cannula (04/29/25 17:03) Stat Ekg For Chest Pain (04/29/25 17:03) Notify Of Changes From Base (04/29/25 17:03) Customer Care Coordinator For 24 Hours (04/29/25 17:03) Emergency Dysrhythmia Protocol (04/29/25 17:03) Rhythm Strips Once Every Shift (04/29/25 17:03) Lactulose Oral (04/29/25 17:15) Levofloxacin 500mg (Levaquin 500mg/ 100m (04/29/25 17:15) Urine Bacterial Culture (04/29/25 17:03) Aspirin Enteric Coated Tablet (Ecotrin E (04/30/25 10:00) Pantoprazole Tablet (Protonix Tablet) (04/29/25 17:45) Vital Signs Date Time Temp Pulse Resp B/P (MAP) Pulse Ox O2 Delivery O2 Flow Rate FiO2 04/29/25 16:56 97.4 63 20 139/70 (93) 95 97.4 04/29/25 15:26 97.9 68 20 128/76 (93) 96 97.9 04/29/25 13:21 97.6 76 16 116/76 98 97.6 Laboratory Tests Test 04/29/25 14:18 White Blood Count 9.1 10^3/uL (4.4-10.8) Assessment/Plan Assessment/Plan Possible acute pyelonephritis Acute complicated UTI/ cystitis -Evident on urinalysis - ordered urinary culture - started on levofloxacin - CT abdominal pelvis - continuously monitor lab - symptomatic management GERD- Protonix Constipation - docusate and lactulose Asthma- not in exacerbation, considering med-nebs if needed Severe osteoarthritis- pain management Pud ppx- Protonix DVT ppx- Lovenox Cardiac diet Goals of care addressed with the patient for more than 27 mins: Full code status Case discussed with the Dr. Patel, patient and nurse Plan discussed with: Patient, Daughter My Orders Orders - KAREL CAGLE RESIDENT Procedure Category Date Status Time Admit ADMIT 04/29/25 Transmitted 17:03 Allergies EDELMIRA 04/29/25 In Process 17:03 Code Status CODE 04/29/25 Transmitted 17:03 Sodium Chloride Lock PHA 04/29/25 In Process (Saline Lock Ns) 22:00 Ondansetron Hcl PHA 04/29/25 In Process (Zofran) 17:15 Docusate Sodium PHA 04/29/25 In Process Capsule (Colace 17:15 Enoxaparin Sodium PHA 04/30/25 In Process (Lovenox) 10:00 Complete Blood Count LAB 04/30/25 Verified 04:00 Comprehensive LAB 04/30/25 Verified Metabolic Panel 04:00 Cardiac DIET 04/29/25 Transmitted Diet-2gna,Lofat,Lochol Dinner Condition: Fair EDELMIRA 04/29/25 In Process 17:03 Acetaminophen Tablet PHA 04/29/25 In Process (Tylenol Tablet) 17:15 Morphine Sulfate PHA 04/29/25 In Process Injection 17:15 Nitroglycerin PHA 04/29/25 In Process Sublingual (Ntrostat 17:15 Morphine Sulfate PHA 04/29/25 In Process Injection 17:15 Oxygen By Nasal RT 04/29/25 Transmitted Cannula 17:03 Stat Ekg For Chest EDELMIRA 04/29/25 In Process Pain 17:03 Notify Of Changes EDELMIRA 04/29/25 In Process From Base 17:03 Customer Care Coordinator For EDELMIRA 04/29/25 In Process 24 Hours 17:03 Emergency Dysrhythmia EDELMIRA 04/29/25 In Process Protocol 17:03 Rhythm Strips Once EDELMIRA 04/29/25 In Process Every Shift 17:03 Lactulose Oral PHA 04/29/25 In Process 17:15 Levofloxacin 500mg PHA 04/29/25 In Process (Levaquin 500mg/ 100m 17:15 Urine Bacterial JOHANA 04/29/25 Logged Culture 17:03 Aspirin Enteric PHA 04/30/25 Logged Coated Tablet 10:00 Pantoprazole Tablet PHA 04/29/25 Logged (Protonix Tablet) 17:45 Visit Coding STANDARD RES Billing Provider: NADEEM PATEL MD Date of Service if different f: Apr 29, 2025 Common Visit Codes: 06213-[id number] INP/OBS CARE (HIGH) Secondary Visit Codes: 43353-[id number] CARE PLAN 30 MINUTES ROZINA CAGLESobiaHADLEY RESIDENT Apr 29, 2025 17:37
[2025-04-29] MEDS: SULFAMETH-TRIMETH 80/16MG-ML 10 ML in D5W 5% 250 ML IV ONE (18:00)
[2025-04-29] MEDS: PANTOPRAZOLE 40 MG TAB PO SCH (18:16)
[2025-04-29] MEDS: LACTULOSE 20Gm/30ML SOLN PO SCH (18:16)
[2025-04-29 21:14] VITALS: BP 147/75; PULSE 70; RESP 18; TEMP 98.1; O2SAT 98
[2025-04-29] MEDS ORDERED: IBAN1TAB2 PO (21:58)
[2025-04-29] MEDS ORDERED: ASPI-325 PO (21:58)
[2025-04-29] MEDS ORDERED: MAGN241.6 PO (21:58)
[2025-04-29] MEDS ORDERED: MEMA1TAB3 PO (21:58)
[2025-04-29] MEDS ORDERED: CICL0.7746 TOP (21:58)
[2025-04-29] MEDS ORDERED: CHOL20002 PO (21:58)
[2025-04-29] MEDS ORDERED: FLUT110A8 PO (21:58)
[2025-04-29] MEDS ORDERED: PRAV20TA3 PO (21:58)
[2025-04-29] MEDS ORDERED: MONT-8 PO (21:58)
[2025-04-29] MEDS ORDERED: LOS25T PO (21:58)
[2025-04-29] MEDS ORDERED: DICL1.3P TOP (21:59)
[2025-04-30] VITALS (11 sets, daily range): BP systolic 119–139; BP diastolic 58–74; PULSE 65–75; RESP 16–18; TEMP 96.4–98.9; O2SAT 96–100
[2025-04-30] MEDS: SODIUM CHLOR 0.9% PF (SALINE LOCK) 10ML VIAL/SYR IV SCH (00:04)
[2025-04-30 06:44] LABS: Hematocrit 42.9 % (36.0-46.0); Hemoglobin 14.7 g/dL (12.2-16.2); Mean Corpuscular Hemoglobin 31.5 pg (28.0-32.0); Mean Corpuscular Volume 91.8 fL (80.0-100.0); Nucleated Red Blood Cells % 0.0 %
[2025-04-30 06:57] LABS: Alanine Aminotransferase 27 U/L (7-40); Albumin 3.8 g/dL (3.2-4.8); Anion Gap 7 (5-15); BUN/Creatinine Ratio 8.5 (10.0-20.0); Carbon Dioxide 27 mmol/L (20-31); Chloride 107 mmol/L (98-107); Glucose 84 mg/dL (74-106); Potassium 4.4 mmol/L (3.5-5.1); Sodium 141 mmol/L (136-145); Total Protein 6.7 g/dL (5.7-8.2)
[2025-04-30 06:58] LABS: Alkaline Phosphatase 125 U/L (46-116); Bilirubin, Total 0.6 mg/dL (0.2-1.0); Blood Urea Nitrogen 7 mg/dL (9-23)
[2025-04-30 06:59] LABS: Calcium 8.7 mg/dL (8.7-10.4)
[2025-04-30] MEDS: ENOXAPARIN SOD 40 MG/0.4 ML SYRINGE SC SCH (09:15)
[2025-04-30] MEDS: ASPirin-EC 81 mg tab PO SCH (09:16)
[2025-04-30] MEDS: ACETAMINOPHEN 325 MG TAB PO PRN (09:21)
--- NOTE | 2025-04-30 13:12 | DVHPN2 ---
Subjective Continues to report having suprapubic pain and right CVA tenderness. Reviewed: Care Plan, H&P, Labs, Medications Changes from previous H/P or p: No Changes General: Per HPI Objective Vitals Vital Signs Date Time Temp Pulse Resp B/P (MAP) Pulse Ox O2 Delivery O2 Flow Rate FiO2 04/30/25 08:00 66 17 97 Room Air* 0 21 04/30/25 05:00 97.6 119/59 (79) 97.6 Intake/Output Intake and Output 04/30/25 07:00 Intake Total 360 ml Balance 360 ml Intake Oral 0 ml IV Total 360 ml # Voids 20 General Appearance: Alert, Oriented X3, Cooperative, mild distress HEENT: Atraumatic, PERRLA Lungs: Clear to auscultation, Normal air movement Cardiovascular: Normal S1, Normal S2 Abdomen: Normal bowel sounds, Soft, No tenderness Musculoskeletal: Normal sensory function, Normal motor function Skin: Dry, Intact Psych/Mental Status: Mental status NL, Mood NL Medications Current Medications Medications Dose Ordered Sig/Bernabe Route Start Time Stop Time Status Last Admin Dose Admin Sodium Chloride 10 ml Q8HR IV 04/29/25 22:00 04/30/25 05:24 10 ML Ondansetron HCl 4 mg Q4HP PRN IV 04/29/25 17:15 Docusate Sodium 100 mg BIDPRN PRN PO 04/29/25 17:15 Enoxaparin Sodium 40 mg DAILY SC 04/30/25 10:00 04/30/25 09:15 40 MG Acetaminophen 650 mg Q6HP PRN PO 04/29/25 17:15 04/30/25 09:21 650 MG Morphine Sulfate 2 mg Q4HPRN PRN IV 04/29/25 17:15 Nitroglycerin 0.4 mg Q5MINP PRN SL 04/29/25 17:15 Morphine Sulfate 2 mg Q30M PRN IV 04/29/25 17:15 Lactulose 30 ml DAILY PO 04/29/25 17:15 04/29/25 18:16 30 ML Levofloxacin/ Dextrose 100 ml @ 100 mls/hr DAILY IV 04/29/25 17:15 04/30/25 09:15 100 MLS/HR Aspirin 81 mg DAILY PO 04/30/25 10:00 04/30/25 09:16 81 MG Pantoprazole Sodium 40 mg DAILY@0600 PO 04/29/25 17:45 04/30/25 05:24 40 MG Laboratory Results Laboratory Tests 04/30/25 06:10 Chemistry Test 04/29/25 14:18 04/30/25 06:10 Calcium Level 9.7 mg/dL (8.7-10.4) 8.7 mg/dL (8.7-10.4) Albumin 3.8 g/dL (3.2-4.8) Total Protein 6.7 g/dL (5.7-8.2) LFT Test 04/30/25 06:10 Alanine Aminotransferase (ALT) 27 U/L (7-40) Alkaline Phosphatase 125 U/L (46-116) H Aspartate Amino Transferase (AST) 32 U/L (13-40) Total Bilirubin 0.6 mg/dL (0.2-1.0) Urinalysis Test 04/29/25 13:32 Urine Color Colorless (Yellow) Urine Clarity Clear (Clear) Urine pH 6.5 (5.0-9.0) Urine Specific [place] 1.002 (1.001-1.035) Urine Protein Negative (Negative) Urine Ketones Negative (Negative) Urine Blood Trace /uL (Negative) H Urine Nitrite Negative (Negative) Urine Bilirubin Negative (Negative) Urine Urobilinogen Normal mg/dL (Negative) Urine Leukocyte Esterase 3+ /uL (Negative) Urine RBC 1 /hpf (0 - 4) Urine Microscopic WBC 9 /HPF (0-5) H Urine Squamous Epithelial Cells Few /hpf (<5) Urine Bacteria Few /hpf (None Seen) H Urine Glucose Normal mg/dL (Normal) Microbiology Microbiology Date/Time Source Procedure Growth Status 04/29/25 13:32 Voided Urine Urine Culture - Preliminary No growth Resulted Labs and/or images reviewed: Labs reviewed by me, Image(s) reviewed by me Assessment/Plan Assessment/Plan Impression: -complicated cystitis -primary hypertension -recent history of thyroidectomy -hypothyroidism -asthma -dementia Plan: -continue IV Levaquin -gentle IV hydration -check TSH -Urine culture pending -Re-evaluate for discharge in a.m. -restart bronchodilators Total time spent with patient discussing and formulating plan of care: 35 minutes. This medical document was created using an electronic medical record system with [employer] dictation system. Although this document has been carefully reviewed, there may still be some phonetic and typographical errors. These areas are purely typographical due to imperfections of the software programs, and do not reflect any compromise in the patient's medical care. Plan discussed with: Patient, Other (RN) Date of Service: Apr 30, 2025 Billing Provider: LENNY KONG NP Common Visit Codes: [id number] INP/OBS CARE(HIGH) LENNY KONG NP Apr 30, 2025 13:12
[2025-04-30] MEDS: ALBUTEROL SULF 2.5 MG/0.5ML(0.5%) NEB SOLN NEB SCH (20:30)
[2025-05-01] VITALS (11 sets, daily range): BP systolic 101–128; BP diastolic 66–77; PULSE 52–75; RESP 14–18; TEMP 97–98.2; O2SAT 96–99
[2025-05-01] MEDS ORDERED: CIP500T PO (11:25)
--- NOTE | 2025-05-01 11:29 | DVHDS2 ---
Discharge Summary Date of Admission Apr 29, 2025 at 17:03 Date of Discharge: May 01, 2025 Admitting Diagnosis Acute pyelonephritis Labs/Diagnostic Data: Laboratory Results Test 04/30/25 06:10 04/29/25 13:32 White Blood Count 6.6 10^3/uL (4.4-10.8) Red Blood Count 4.68 10^6/uL (4.0-5.20) Hemoglobin 14.7 g/dL (12.2-16.2) Hematocrit 42.9 % (36.0-46.0) Mean Corpuscular Volume 91.8 fL (80.0-100.0) Mean Corpuscular Hemoglobin 31.5 pg (28.0-32.0) Mean Corpuscular Hemoglobin Concent 34.4 g/dL (32.0-36.0) Red Cell Distribution Width 14.1 % (11.8-14.3) Platelet Count 202 10^3/uL (140-450) Mean Platelet Volume 9.3 fL (6.9-10.8) Neutrophils (%) (Auto) 42.7 % (37.0-80.0) Lymphocytes (%) (Auto) 43.3 % (10.0-50.0) Monocytes (%) (Auto) 8.5 % (0.0-12.0) Eosinophils (%) (Auto) 4.0 % (0.0-7.0) Basophils (%) (Auto) 1.5 % (0.0-2.0) Neutrophils # (Auto) 2.8 10 ^3/uL (1.6-8.6) Lymphocytes # (Auto) 2.9 10 ^3/uL (0.4-5.4) Monocytes # (Auto) 0.6 10 ^3/uL (0-1.3) Eosinophils # (Auto) 0.3 10 ^3/uL (0-0.8) Basophils # (Auto) 0.1 10 ^3/uL (0-0.2) Nucleated Red Blood Cells 0.0 % Sodium Level 141 mmol/L (136-145) Potassium Level 4.4 mmol/L (3.5-5.1) Chloride Level 107 mmol/L (98-107) Carbon Dioxide Level 27 mmol/L (20-31) Anion Gap 7 (5-15) Blood Urea Nitrogen 7 mg/dL (9-23) Creatinine 0.82 mg/dL (0.550-1.02) Glomerular Filtration Rate Calc 75 mL/min (>90) BUN/Creatinine Ratio 8.5 (10.0-20.0) Serum Glucose 84 mg/dL (74-106) Calcium Level 8.7 mg/dL (8.7-10.4) Total Bilirubin 0.6 mg/dL (0.2-1.0) Aspartate Amino Transferase (AST) 32 U/L (13-40) Alanine Aminotransferase (ALT) 27 U/L (7-40) Alkaline Phosphatase 125 U/L (46-116) Total Protein 6.7 g/dL (5.7-8.2) Albumin 3.8 g/dL (3.2-4.8) Urine Color Colorless (Yellow) Urine Clarity Clear (Clear) Urine pH 6.5 (5.0-9.0) Urine Specific [place] 1.002 (1.001-1.035) Urine Protein Negative (Negative) Urine Ketones Negative (Negative) Urine Blood Trace /uL (Negative) Urine Nitrite Negative (Negative) Urine Bilirubin Negative (Negative) Urine Urobilinogen Normal mg/dL (Negative) Urine Leukocyte Esterase 3+ /uL (Negative) Urine RBC 1 /hpf (0 - 4) Urine Microscopic WBC 9 /HPF (0-5) Urine Squamous Epithelial Cells Few /hpf (<5) Urine Bacteria Few /hpf (None Seen) Urine Glucose Normal mg/dL (Normal) Other Laboratory Tests 04/30/25 06:10 Brief Hx & Hospital Course: History of Present Illness Yessi Montejo 74 f with a PMH of HTN, liver cirrhosis, unspecified kidney pus, thyroidectomy presented to the ED with the chief complaints of urinary symptoms for 2 days. Patient reported that she has been having painful micturition, urgency, frequency, lower abdominal pain, nausea, vomiting, pain radiating to her back and hips bilaterally which prompted her to visit ED. She also reported constipation. Patient denies other symptoms Course of hospitalization: Patient was given gentle IV hydration with IV antibiotic therapy with Levaquin. Patient's symptoms have improved. She no longer reports having abdominal pain or dysuria. Patient will be discharged home and be continued on antibiotic therapy with ciprofloxacin 500 mg p.o. b.i.d. x5 days. She will continue all previous home medications and follow up with the discharge Clinic in one week. She is agreeable with discharge plan. All questions answered. Physical examination General: Alert and Oriented x3. No acute distress. Well-nourished. Eyes: EOMI. Anicteric. HENT: Moist mucous membranes. Lungs: Clear to auscultation bilaterally. No accessory muscle use. Cardiovascular: Regular rate and rhythm. No murmur. No JVD. Abdomen: Soft, non-tender and non-distended. No palpable masses. Extremities: No edema. Non-tender. Skin: No rashes or lesions. Warm. Neurologic: No focal neurological deficits. CN II-XII grossly intact, but not individually tested. Psychiatric: Cooperative. Appropriate mood and affect. Total time spent with patient discussing and formulating plan of care: 35 minutes. This medical document was created using an electronic medical record system with [employer] system. Although this document has been carefully reviewed, there may still be some phonetic and typographical errors. These areas are purely typographical due to imperfections of the software programs, and do not reflect any compromise in the patient's medical care. Condition at Discharge: Fair Final Diagnosis/Problems List Abdominal pain secondary to complicated cystitis -complicated cystitis -primary hypertension -recent history of thyroidectomy -hypothyroidism -asthma -dementia Discharge Disposition: Home Discharge Instruct/Medications Diet: Cardiac 2g Na,low cholest Activity: No Restrictions, As Tolerated Follow Up/Referral: Follow up with PCP in 1-2 weeks Discharge Clinic in one week Medications: Continue all home medications Ciprofloxacin 500 mg p.o. b.i.d. x5 days Scheduled Aspirin (Aspir-81), 81 MG PO DAILY, (Reported) Aspirin (Aspirin Low Dose), 1 TAB PO DAILY, (Reported) Atorvastatin Calcium (Lipitor), Unknown Dose PO DAILY, (Reported) Cholecalciferol (Vitamin D3), 1 CAP PO DAILY, (Reported) Ciclopirox Olamine (Ciclopirox Olamine), 1 TOP DAILY, (Reported) Ciprofloxacin Hydrochloride (Ciprofloxacin HCl), 500 MG PO BID Diclofenac Epolamine (Flector), 1 PATCH TOP BID, (Reported) Dicyclomine Hcl (Bentyl Capsule), 1 CAP PO TID Docusate Sodium (Colace), 1 CAP PO BID Fluticasone Propionate (FLOVENT HFA 110Mcg INH), 110 MCG INH Q12HR, (Reported) Fluticasone Propionate (Fluticasone Propionate Hf), 1 PUFF PO BID, (Reported) Hydrocortisone Base (Anusol-Hc), 1 APPLIC TOP BID Losartan Potassium (Losartan Potassium), 1 TAB PO DAILY, (Reported) Magnesium Oxide (mg Supplement (Magnesium-Oxide), 1 TAB PO DAILY, (Reported) Memantine Hydrochloride (Memantine HCl), 1 TAB PO DAILY, (Reported) Omeprazole (Omeprazole Dr), 40 MG PO DAILY Pravastatin Sodium (Pravachol Tablet), 1 TAB PO DAILY, (Reported) Prednisone (Prednisone), 20 MG PO DAILY Scheduled PRN Hydrocodone-Acetaminophen (Hydrocodone Bitartrate/AC 5-325 mg), 1 TAB PO Q6HPRN PRN Hydrocodone-Acetaminophen (Hydrocodone Bitartrate/AC 5-325 mg), 1 TAB PO Q6HP PRN Ipratropium-Albuterol (Ipratropium Thendara/Albut), 1 CHRISTAL IN Q4HPRN PRN Ondansetron Odt 4MG Tab (Zofran Po), 4 MG PO Q4HPRN PRN Miscellaneous Medications Ibandronate Sodium (Ibandronate Sodium), 1 TAB PO, (Reported) Montelukast Sodium (Montelukast Sodium), 1 TAB PO, (Reported) Durable Medical Equipment Respiratory Therapy Supplies (Full Kit Nebulizer Set), UNIT XX, (DME) 36 Discharge Statement: "Patient was advised to return to the ER or call 911 if any headaches, dizziness, shortness of breath, chest pain, abdominal pain, bleeding, fevers, or worsening of medical condition. Patient was counseled about treatment plan, medications, possible side effects, patientverbalized understanding. All questions were answered to the best of my ability. This discharge took greater then 30 minutes in planning, reviewing documentation, counseling the patient, and discussing with other team members." ASSESSMENT ASSESSMENT Assessment Abdominal pain secondary to complicated cystitis Date of Service: May 01, 2025 Billing Provider: LENNY KONG NP Common Visit Codes: 12694-DBL/OBS DISCH DAY >30min LENNY KONG NP May 01, 2025 11:29
== END 2025-05-01 15:00 | disposition home or self-care (01) | DRG 690 ==
LOC: ER 13:20 → OVERFLOW 17:03 → CENTRAL 21:14
PROVIDERS: ADMIT Nurse Practitioner Acute Care; ATTEND Nurse Practitioner Acute Care
DX: N30.00 Acute cystitis without hematuria (principal); E03.9 Hypothyroidism, unspecified; F03.90 Unspecified dementia, unspecified severity, without behavioral disturbance, psychotic disturbance, mood disturbance, and anxiety; J45.909 Unspecified asthma, uncomplicated; I10 Essential (primary) hypertension; K21.9 Gastro-esophageal reflux disease without esophagitis; E78.5 Hyperlipidemia, unspecified; K59.00 Constipation, unspecified; Z88.0 Allergy status to penicillin; Z88.8 Allergy status to other drugs, medicaments and biological substances; Z79.82 Long term (current) use of aspirin; Z79.899 Other long term (current) drug therapy; Z90.710 Acquired absence of both cervix and uterus
CPT/HCPCS: 36415; 74176; 80048; 80053; 81001; 85025; 87086; 94640; G0378; J1956; J3490; J7060